=== PATIENT | female | born 1965 | race Caucasian/White ===

== ENCOUNTER → 2017-07-17 11:33 | Outpatient (CLI) | payer OTHER, SELFPAY ==
[2017-07-17 12:54] LABS: Hematocrit 41.1 % (37-47); Hemoglobin 13.5 g/dl (12.0-15.0); Mean Corp Hgb Conc 32.8 g/gl (32-36); Mean Corpuscular Hgb 29.9 pg (27.0-32.0); Mean Corpuscular Volume 91.1 fL (81-99); Mean Platelet Vol. 10.4 fl (6.2-12.0); Platelet Count 315 K/mm3 (150-450); RBC Distribution Width CV 13.7 % (11.6-14.6); RBC Distribution Width SD 45.1 fl (35.1-43.9); Red Blood Count 4.51 M/mm3 (4.2-5.4); White Blood Count 7.5 K/mm3 (4.4-11.0)
[2017-07-17 12:57] LABS: Scan Indicated on CBC? Y/N NO
[2017-07-17 13:20] LABS: Estradiol 96.8 pg/mL; Follicle Stimulating Hormone 26.8 mIU/mL; Free T3 2.8 pg/mL (2.18-3.98); Hemoglobin A1c 5.7 % (4.2-6.3); T4 Free Direct 0.99 ng/dL (0.76-1.46); Thyroid Stim Hormone (TSH) 2.13 uIU/mL (0.358-3.74)
[2017-07-17 13:21] LABS: Progesterone Level 0.17 ng/mL (See Comment)
[2017-07-19 15:03] LABS: HPV Reflexed? NOT INDICATED
== END ==
PROVIDERS: Visit Provider Obstetrics & Gynecology
DX: Z12.4 Encounter for screening for malignant neoplasm of cervix (principal); N92.6 Irregular menstruation, unspecified
CPT/HCPCS: 36415; 82670; 83001; 83036; 84144; 84403; 84439; 84443; 84481; 85027; 88175; G0145

== ENCOUNTER → 2017-08-09 13:05 | Outpatient (CLI) | payer OTHER, SELFPAY ==
--- NOTE | 2017-08-09 13:08 | HPBI_ITS ---
MAMMOGRAPHY - BILATERAL SCREENING REASON FOR EXAM: Female, 52 years old. Routine annual screening examination. PERTINENT HISTORY: Aunt with breast cancer. TECHNIQUE: Digital bilateral breast neema (3D mammographic acquisition) in the CC and MLO projections. 2-D mediolateral oblique (MLO) and craniocaudad (CC) views of both breasts were obtained. CAD: Full Field Digital Mammography with Computer Added Detection was performed. COMPARISON: Comparison is made with prior study dated July 12, 2015 and October 25, 2010. FINDINGS: Breast Composition: The breasts are heterogeneously dense, which may obscure small masses. There are no dominant masses or suspicious calcifications. A tissue clip marker from prior stereotactic biopsy seen in the anterior upper lateral portion of the left breast. No other significant abnormalities are identified. There has been no significant change since the prior study. HPBI/SCREENING MAMM (CAD), BILAT IMPRESSION: Stable bilateral screening mammogram. Yearly follow-up mammogram recommended. (A) ASSESSMENT CATEGORY: BIRADS Category 2: Benign. A letter regarding these results will be sent to the patient by the facility within 30 days. Approximately 10% of breast cancers are not detected by mammography. A normal mammogram should not delay biopsy of a clinically suspicious abnormality. [id number] Electronically Signed: Jason Lucero MD at 14:30 EDT Tel [phone], Service support ,
== END ==
PROVIDERS: Family Provider Family Medicine; PCP Family Medicine; Visit Provider Obstetrics & Gynecology
DX: Z12.31 Encounter for screening mammogram for malignant neoplasm of breast (principal)
CPT/HCPCS: 77063; 77067

== ENCOUNTER → 2017-08-12 09:17 | Outpatient (CLI) | payer OTHER, SELFPAY ==
--- NOTE | 2017-08-12 09:18 | RAD_ITS ---
STUDY: X-RAY - ESOPHAGUS (BARIUM SWALLOW) WITH FLUOROSCOPY REASON FOR EXAM: Female, 52 years old. Dysphagia. Choking episodes. TECHNIQUE: 6 view(s) of the esophagus were obtained following swallowing of barium. FLUOROSCOPY TIME (if supplied): (0:40) minutes/seconds COMPARISON: None. FINDINGS: There is no demonstrated esophageal foreign body. There is no demonstrated stricture or mucosal abnormality. Normal gastroesophageal junction, without a demonstrated hiatal hernia. The patient ingested a 12 mm tablet of barium without any difficulty. Normal visualized aortic arch and descending thoracic aorta. Normal visualized pulmonary parenchyma. Levoscoliosis of the thoracic spine and dextroscoliosis of the lumbar spine. RAD/Esophagus Only IMPRESSION: Normal plain film x-ray examination (barium swallow) of the esophagus. Electronically Signed: Jason Lucero MD at 10:31 EDT Tel [phone], Service support ,
== END ==
PROVIDERS: Family Provider Family Medicine; PCP Family Medicine; Visit Provider Otolaryngology
DX: R13.10 Dysphagia, unspecified (principal)
CPT/HCPCS: 74220

== ENCOUNTER → 2018-09-24 12:33 | Outpatient (CLI) | payer OTHER, SELFPAY ==
--- NOTE | 2018-09-24 12:41 | STE_ITS ---
Reason For Study: Chest Pain Stress Results Protocol: Julian Protocol Maximum Predicted HR: 169 bpm Target HR: 144 bpm % Maximum Predicted HR: 104 % DurationHeart Rate Stage (mm:ss) (bpm) BP Comment Baseline 65 104/60No Chest Pain Julian Protocol Stage I 3:00 121 110/60No Chest Pain Julian Protocol Stage II 3:00 151 136/74No Chest Pain Julian Protocol Stage III 3:00 176 150/72No Chest Pain; Mild to Moderate Dyspnea Recovery 96 104/60No Chest Pain Stress Duration: 9:00 mm:ss Maximum Stress HR: 176 bpm METS: 10 Baseline Echocardiogram Findings The estimated ejection fraction is 65 %. Stress Echo Wall motion Data Resting WM Intermediate WM Stress WM Resting Wall Motion Wall Motion Stress No regional wall motion No regional wall motion abnormalities noted. abnormalities noted. EKG Data The baseline ECG displays normal sinus rhythm. The patient exercised according to the regular Julian protocol for a total duration of 9:00. The maximum heart rate attained was 179 beats per minute. This was 105% of maximum predicted heart rate. The patient exercised into stage 4 of the Julian protocol. At peak exercise, upsloping ST changes only were noted, which did not meet the criteria for ischemia. No clinical angina was noted. No arrhythmias noted. Interpretation Summary The estimated ejection fraction is 65 %. Normal, adequate, treadmill echocardiogram. Negative for ischemia by EKG and echocardiographic criteria. No anginal symptoms noted. No arrhythmias noted. Appropriate blood pressure response to exercise. Average exercise capacity for age. Test terminated due to dyspnea. Final LVEF is 75%. No complications. Ordering Physician: Jose Torres Referring Physician: Eugenio Davis Performed By: Leti Nieto, ROS, RVT
== END ==
PROVIDERS: Family Provider Family Medicine; PCP Family Medicine; Referring Provider Family Medicine; Visit Provider Family Medicine
DX: R07.89 Other chest pain (principal)
CPT/HCPCS: 93017; 93350

== ENCOUNTER → 2018-11-12 11:30 | Outpatient (CLI) | payer OTHER, SELFPAY ==
[2018-11-12 14:08] LABS: Hemoglobin A1c 5.5 % (4.2-6.3)
[2018-11-12 14:11] LABS: Estradiol 23.2 pg/mL; Follicle Stimulating Hormone 57.1 mIU/mL; Free T3 2.4 pg/mL (2.18-3.98); T4 Free Direct 0.98 ng/dL (0.76-1.46); Thyroid Stim Hormone (TSH) 1.51 uIU/mL (0.358-3.74)
[2018-11-12 14:13] LABS: Progesterone Level 0.15 ng/mL (See Comment)
[2018-11-20 15:57] LABS: HPV Reflexed? NOT INDICATED
== END ==
PROVIDERS: Visit Provider Obstetrics & Gynecology
DX: Z12.4 Encounter for screening for malignant neoplasm of cervix (principal); N92.6 Irregular menstruation, unspecified
CPT/HCPCS: 36415; 82670; 83001; 83036; 84144; 84403; 84439; 84443; 84481; 88175; G0145

== ENCOUNTER → 2018-11-26 15:23 | Outpatient (CLI) | payer OTHER, SELFPAY ==
--- NOTE | 2018-11-26 15:25 | BI_ITS ---
MAMMOGRAPHY - BILATERAL SCREENING REASON FOR EXAM: Female, 53 years old. Routine annual screening examination. PERTINENT HISTORY: Aunt with breast cancer. Remote left stereotactic breast biopsy. TECHNIQUE: Digital bilateral breast danica (3D mammographic acquisition) in the CC and MLO projections. 2-D mediolateral oblique (MLO) and craniocaudad (CC) views of both breasts were obtained. CAD: Full Field Digital Mammography with Computer Added Detection was performed. COMPARISON: Comparison is made with prior study dated August 09, 2017 and July 12, 2015. FINDINGS: Breast Composition: The breasts are heterogeneously dense, which may obscure small masses. There are no dominant masses or suspicious calcifications. A tissue clip marker is once again seen in the upper lateral portion of the left breast. No other significant abnormalities are identified. There has been no significant change since the prior study. BI/SCREEN MAMM (CAD) W/DANICA BILAT IMPRESSION: Stable bilateral screening mammogram. Yearly follow-up mammogram recommended. (A) ASSESSMENT CATEGORY: BIRADS Category 1: Negative. A letter regarding these results will be sent to the patient by the facility within 30 days. Approximately 10% of breast cancers are not detected by mammography. A normal mammogram should not delay biopsy of a clinically suspicious abnormality. [id number] Electronically Signed: Jason Lucero, at 8:49 EDT , Service support ,
== END ==
PROVIDERS: Referring Provider Obstetrics & Gynecology; Visit Provider Obstetrics & Gynecology
DX: Z12.31 Encounter for screening mammogram for malignant neoplasm of breast (principal)
CPT/HCPCS: 77063; 77067

== ENCOUNTER → 2018-12-24 10:11 | Outpatient (CLI) | payer OTHER, SELFPAY ==
--- NOTE | 2018-12-24 10:20 | US_ITS ---
STUDY: ULTRASOUND TRANSVAGINAL CLINICAL: Female, 53 years old. Irregular menstrual cycles TECHNIQUE: Transvaginal COMPARISON: None. FINDINGS: Normal uterine size measuring 8.9 x 6.2 x 3.5 cm in maximal craniocaudal dimension. 1.2 cm hypoechoic mass in left side of the uterus consistent with an intramural fibroid.. Normal endometrial thickness measuring 4 mm. There are no endometrial masses, and there is no fluid in the endometrial cavity. Normal uterine cervix. Normal right ovary, measuring 2.2 x 1.8 x 1.4 cm. There are multiple follicles without a dominant cyst. Normal left ovary, measuring 2.8 x 2.4 x 1.7 cm. There are multiple follicles without a dominant cyst. There is no free fluid in the pelvis. Polycystic ovary disease: No. US/Pelvic (Non ) IMPRESSION: 1.2 cm fibroid in the left side of body the uterus. Electronically Signed: Anuel Benítez MD at 12:44 EDT Tel , Service support ,
--- NOTE | 2018-12-24 10:53 | US_ITS ---
STUDY: ULTRASOUND TRANSVAGINAL CLINICAL: Female, 53 years old. Irregular menstrual cycles TECHNIQUE: Transvaginal COMPARISON: None. FINDINGS: Normal uterine size measuring 8.9 x 6.2 x 3.5 cm in maximal craniocaudal dimension. 1.2 cm hypoechoic mass in left side of the uterus consistent with an intramural fibroid.. Normal endometrial thickness measuring 4 mm. There are no endometrial masses, and there is no fluid in the endometrial cavity. Normal uterine cervix. Normal right ovary, measuring 2.2 x 1.8 x 1.4 cm. There are multiple follicles without a dominant cyst. Normal left ovary, measuring 2.8 x 2.4 x 1.7 cm. There are multiple follicles without a dominant cyst. There is no free fluid in the pelvis. Polycystic ovary disease: No. US/Transvaginal Non- IMPRESSION: 1.2 cm fibroid in the left side of body the uterus. Electronically Signed: Anuel Benítez MD at 12:44 EDT Tel , Service support ,
== END ==
PROVIDERS: Referring Provider Obstetrics & Gynecology; Visit Provider Obstetrics & Gynecology
DX: N93.8 Other specified abnormal uterine and vaginal bleeding (principal)
CPT/HCPCS: 76830; 76856; 93976

== ENCOUNTER → 2020-02-02 | Outpatient (CLI) | payer OTHER, SELFPAY ==
[2020-02-05 15:40] LABS: HPV APTIMA, High Risk Negative (Negative)
[2020-02-05 15:41] LABS: HPV Reflexed? YES, CHARGE PATIENT
== END | disposition home or self-care (01) ==
LOC: LABSPEC 15:32
PROVIDERS: Visit Provider Student in an Organized Health Care Education/Training Program
DX: Z12.4 Encounter for screening for malignant neoplasm of cervix (principal)
CPT/HCPCS: 87624; 88175; G0145

== ENCOUNTER → 2020-03-24 14:46 | Outpatient (CLI) | payer OTHER, SELFPAY ==
--- NOTE | 2020-03-24 14:48 | BI_ITS ---
MAMMOGRAPHY - BILATERAL SCREENING REASON FOR EXAM: Female, 54 years old. Routine annual screening examination. PERTINENT HISTORY: Aunt with breast cancer. Remote left stereotactic breast biopsy. TECHNIQUE: Digital bilateral breast danica (3D mammographic acquisition) in the CC and MLO projections. 2-D mediolateral oblique (MLO) and craniocaudad (CC) views of both breasts were obtained. CAD: Full Field Digital Mammography with Computer Added Detection was performed. COMPARISON: Comparison is made with prior study dated 11/26/2018 and 08/09/2017. FINDINGS: Breast Composition: The breasts are heterogeneously dense, which may obscure small masses. There are no dominant masses or suspicious calcifications. A tissue clip marker is once again seen in the upper lateral aspect of the left breast. Stable benign appearing bilateral axillary lymph nodes. No other significant abnormalities are identified. There has been no significant change since the prior study. BI/SCREEN MAMM (CAD) W/DANICA BILAT IMPRESSION: Stable bilateral screening mammogram. Yearly follow-up mammogram recommended. (A) ASSESSMENT CATEGORY: BIRADS Category 2: Benign. A letter regarding these results will be sent to the patient by the facility within 30 days. Approximately 10% of breast cancers are not detected by mammography. A normal mammogram should not delay biopsy of a clinically suspicious abnormality. [id number] Electronically Signed: Jason Lucero, at 8:45 EDT , Service support ,
== END ==
PROVIDERS: Referring Provider Student in an Organized Health Care Education/Training Program; Visit Provider Student in an Organized Health Care Education/Training Program
DX: Z12.31 Encounter for screening mammogram for malignant neoplasm of breast (principal)
CPT/HCPCS: 77063; 77067

== ENCOUNTER 2020-08-11 12:24 | Outpatient (RCR) | payer OTHER, SELFPAY ==
[2020-08-11] MEDS: COVID-19 VACC, MRNA(PFIZER)/PF 30 MCG/0.3 ML SYRINGE IM (09:43)
[2020-09-01] MEDS: COVID-19 VACC, MRNA(PFIZER)/PF 30 MCG/0.3 ML SYRINGE IM (09:23)
== END 2020-08-11 23:59 ==
LOC: IMMUN 12:24
PROVIDERS: PCP Family Medicine; Visit Provider Family Medicine
DX: Z23 Encounter for immunization (principal)
CPT/HCPCS: 0001A; 0002A; 91300

== ENCOUNTER → 2021-01-10 14:44 | Outpatient (CLI) | payer OTHER, SELFPAY ==
[2021-01-10 14:49] LABS: Bacteria 0 SEEN /hpf (None Seen); Mucous, Urine 0 SEEN /hpf (<or=2+); Squamous Epithelial Cells - UA 0 SEEN /hpf (5-10); White Blood Cells 0 SEEN /hpf (0-5)
[2021-01-10 18:09] LABS: Color, Urine Straw (Yellow); Glucose, Dipstick Normal (Normal); Ketone-Dipstick Negative (Negative); Leukocyte Esterase-Dipstick 25 /ul (Negative); Nitrite-Dipstick Negative (Negative); Occult Blood-Urine 250 /ul (Negative); Protein-Dipstick Negative (Negative); Urine Bilirubin Dipstick Negative (Negative); Urine Clarity Clear (Clear); Urine Urobilinogen Normal (Normal); Urine pH 6.5 (5.0 - 8.0)
[2021-01-10 18:18] LABS: Red Blood Cells-Urine 0-5 SEEN /hpf (0-5)
[2021-01-10 18:33] LABS: AST(SGOT) 15 U/L (15-37); Alanine Aminotransfer ALT/SGPT 23 U/L (13-56); Albumin, Serum 3.9 g/dL (3.2-5.0); Alkaline Phosphatase 80 U/L (45-117); Anion Gap 5 (5-15); BUN 16 mg/dL (7-18); BUN/Creat Ratio 13.7 RATIO (10-20); Calcium,Total 9.6 mg/dL (8.5-10.1); Chloride 104 mmol/L (98-107); Cholesterol 197 mg/dL (200); Creatinine, Serum 1.17 mg/dL (0.55-1.02); EST Glomerular Filtration Rate 51 mL/min (>60); Est Glom Filt Rate - Afr Amer 62 mL/min (>60); Globulin 4.1 g/dL (2.2-4.2); Glucose 86 mg/dL (74-106); High Density Lipoprotein 60 mg/dL; Potassium 3.8 mmol/L (3.5-5.1); Sodium Level 139 mmol/L (136-145); Triglycerides 79 mg/dL; Very Low Density Lipoprotein 16 mg/dL (5-40)
== END ==
PROVIDERS: PCP Family Medicine; Referring Provider Family Medicine; Visit Provider Family Medicine
DX: E66.3 Overweight (principal); N02.8 Recurrent and persistent hematuria with other morphologic changes
CPT/HCPCS: 36415; 80053; 80061; 81001

== ENCOUNTER 2021-06-08 11:52 | Outpatient (CLI) | payer OTHER, SELFPAY ==
[2021-06-08 15:22] LABS: Hemoglobin 12.6 g/dL (12.0-15.0); Mean Corp Hgb Conc 31.5 g/dL (32-36); Mean Corpuscular Hgb 28.6 pg (27.0-32.0); Mean Corpuscular Volume 90.7 fL (81-99); Mean Platelet Vol. 10.4 fl (6.2-12.0); Platelet Count 349 K/mm3 (150-450); RBC Distribution Width CV 13.7 % (11.6-14.6); RBC Distribution Width SD 45.9 fl (35.1-43.9); Red Blood Count 4.41 M/mm3 (4.2-5.4); White Blood Count 6.2 K/mm3 (4.4-11.0)
[2021-06-08 15:41] LABS: Albumin, Serum 3.8 g/dL (3.2-5.0); BUN 13 mg/dL (7-18); BUN/Creat Ratio 12.3 RATIO (10-20); Calcium,Total 9.1 mg/dL (8.5-10.1); Chloride 104 mmol/L (98-107); Creatinine, Serum 1.06 mg/dL (0.55-1.02); EST Glomerular Filtration Rate 57 mL/min (>60); Est Glom Filt Rate - Afr Amer 69 mL/min (>60); Glucose 89 mg/dL (74-106); Phosphorus 2.6 mg/dL (2.5-4.9); Potassium 3.7 mmol/L (3.5-5.1); Sodium Level 140 mmol/L (136-145)
[2021-06-08 15:52] LABS: Creatinine, Urine (random) < 13.00 mg/dL (NO RANGE EST.); Microalbumin,Random Urine < 5.0 mg/L (NO RANGE EST.); Protein, Urine (Random) < 6.0 mg/dL (<11.9)
[2021-06-12 14:28] LABS: HPV APTIMA, High Risk Negative (Negative)
== END 2021-06-08 23:59 | disposition short-term general hospital (02) ==
PROVIDERS: Referring Provider Internal Medicine Nephrology; Visit Provider Internal Medicine Nephrology
DX: N02.8 Recurrent and persistent hematuria with other morphologic changes (principal); Z12.4 Encounter for screening for malignant neoplasm of cervix
CPT/HCPCS: 36415; 80069; 82043; 82570; 84156; 85027; 87624; 88175; G0145

== ENCOUNTER 2021-06-20 08:58 | Outpatient (CLI) | payer OTHER, SELFPAY ==
--- NOTE | 2021-06-20 09:00 | BI_ITS ---
MAMMOGRAPHY - BILATERAL DIAGNOSTIC REASON FOR EXAM: Female, 56 years old. Left axillary pain and swelling. Recent Covid vaccination. PERTINENT HISTORY: Remote left stereotactic breast biopsy. TECHNIQUE: Digital bilateral breast neema (3D mammographic acquisition) in the CC and MLO projections. 2-D mediolateral oblique (MLO) and craniocaudad (CC) views of both breasts were obtained. CAD: Full Field Digital Mammography with Computer Added Detection was performed. COMPARISON: Comparison is made with prior study dated 03/24/2020 and 11/26/2018. FINDINGS: Breast Composition: The breasts are heterogeneously dense, which may obscure small masses. There are no dominant masses or suspicious calcifications. A tissue clip marker is seen in the upper deep lateral aspect of the left breast in keeping with prior biopsy. No other significant abnormalities are identified. There has been no significant change since the prior study. BI/DIAG MAMM W/CAD, BILAT IMPRESSION: Stable bilateral diagnostic mammogram. With the patient''s history of pain in the axillary region of the left breast, correlation with ultrasound is recommended. ASSESSMENT CATEGORY: BIRADS Category 0: Incomplete. Need additional imaging evaluation. A letter regarding these results will be sent to the patient by the facility within 30 days. Approximately 10% of breast cancers are not detected by mammography. A normal mammogram should not delay biopsy of a clinically suspicious abnormality. Electronically Signed: Jason Lucero MD at 10:11 EST , Service support ,
--- NOTE | 2021-06-20 09:05 | BD_ITS ---
STUDY: DUAL ENERGY X-RAY ABSORPTIOMETRY / DXA REASON FOR EXAM: Female, 56 years old. M85.89 TECHNIQUE: Bone Mineral Density (BMD) measurements of lumbar spine and bilateral hips were obtained. COMPARISON: None. FINDINGS: Lumbar Spine (L1-L4): g/cm2 (0.934) / T-score (-1.1) / Z-score (-0.1) Findings are suggestive of osteopenia with a low fracture risk. Left Femur Total: g/cm2 (0.990) / T-score (0.4) / Z-score (1.0) Left Femoral Neck: g/cm2 (0.762) / T-score (-0.8) / Z-score (0.2) Right Femur Total: g/cm2 (1.030) / T-score (0.7) / Z-score (1.4) Right Femoral Neck: g/cm2 (0.888) / T-score (0.3) / Z-score (1.4) BD/Dexa Bone Density Study IMPRESSION: The patient is considered osteopenic as outlined below according to World Jose Organization (WHO) criteria with a low fracture risk. Reference Information: The T-score is the number of standard deviations above or below the standard which is normal for young adults at their peak bone mineral density. The World Health Organization (WHO) interprets the T-scores as follows: Above -1 Normal bone density Between -1 and -2.5 Osteopenia Equal to / or below -2.5 Osteoporosis As a practical clinical guideline, osteopenia may be graded as follows: Mild -1 through -1.5 Moderate -1.6 through -2.0 Severe -2.1 through -2.4 The Z-score is the number of standard deviations above or below age-matched controls. A Z-score of less than -1.5 would be considered abnormal. References: 1. NIH Osteoporosis and Related Bone Diseases www osteo.org 2. International Society for Clinical Densitometry www iscd.org 3. National Osteoporosis Foundation www nof.org Electronically Signed: Jason Lucero MD at 9:48 EST , Service support ,
--- NOTE | 2021-06-20 09:43 | US_ITS ---
STUDY: ULTRASOUND BREAST - LEFT REASON FOR EXAM: Female, 56 years old. Pain and swelling along the left axillary region. TECHNIQUE: Axial and longitudinal images of the LEFT breast were performed with a high resolution ultrasound transducer. # OF IMAGES: 50 COMPARISON: Comparison is made with prior mammogram done earlier in the day. FINDINGS: LEFT Breast: The axillary region was examined by ultrasound. There is a 1 cm x 0.6 x 0.5 cm benign-appearing lymph node. US/Breast Limited Unilateral IMPRESSION: 1 cm x 0.6 cm x 0.5 cm benign appearing left axillary lymph node. ASSESSMENT CATEGORY: BIRADS Category 2: Benign. A letter regarding these results will be sent to the patient by the facility within 30 days. Electronically Signed: Jason Lucero MD at 10:31 EST ,
== END 2021-06-20 23:59 | disposition short-term general hospital (02) ==
PROVIDERS: Referring Provider Student in an Organized Health Care Education/Training Program; Visit Provider Student in an Organized Health Care Education/Training Program
DX: N63.32 Unspecified lump in axillary tail of the left breast (principal); M85.89 Other specified disorders of bone density and structure, multiple sites
CPT/HCPCS: 76642; 77062; 77066; 77080; G0279

== ENCOUNTER → 2022-05-23 | Outpatient (CLI) | payer OTHER, SELFPAY ==
[2022-05-23 15:27] LABS: Anion Gap 5 (5-15); BUN 15 mg/dL (7-18); BUN/Creat Ratio 13.8 RATIO (10-20); Calcium,Total 9.3 mg/dL (8.5-10.1); Chloride 103 mmol/L (98-107); Creatinine, Serum 1.09 mg/dL (0.55-1.02); EST Glomerular Filtration Rate 55 mL/min (>60); Est Glom Filt Rate - Afr Amer 67 mL/min (>60); Glucose 93 mg/dL (74-106); Potassium 4.5 mmol/L (3.5-5.1); Sodium Level 139 mmol/L (136-145)
[2022-05-23 15:33] LABS: Protein, Urine (Random) < 6.0 mg/dL (<11.9); Protein:Creat Ratio 149 mg/g CRE (0-200)
== END | disposition home or self-care (01) ==
LOC: MTLAB 13:05
PROVIDERS: PCP Family Medicine; Referring Provider Internal Medicine Nephrology; Visit Provider Internal Medicine Nephrology
DX: N18.1 Chronic kidney disease, stage 1 (principal)
CPT/HCPCS: 36415; 80048; 82570; 84156

== ENCOUNTER → 2022-06-29 | Outpatient (CLI) | payer OTHER, SELFPAY ==
[2022-07-06 18:44] LABS: HPV APTIMA, High Risk Negative (Negative)
== END | disposition home or self-care (01) ==
LOC: LABSPEC 15:39
PROVIDERS: PCP Family Medicine; Visit Provider Student in an Organized Health Care Education/Training Program
DX: Z12.4 Encounter for screening for malignant neoplasm of cervix (principal)
CPT/HCPCS: 87624; 88175; G0145

== ENCOUNTER → 2022-07-11 | Outpatient (CLI) | payer OTHER, SELFPAY ==
--- NOTE | 2022-07-11 12:14 | BI_ITS ---
MAMMOGRAPHY - BILATERAL SCREENING REASON FOR EXAM: Female, 57 years old. Routine annual screening examination. PERTINENT HISTORY: Aunt with breast cancer. Remote left stereotactic breast biopsy. TECHNIQUE: Digital bilateral breast danica (3D mammographic acquisition) in the CC and MLO projections. 2-D mediolateral oblique (MLO) and craniocaudad (CC) views of both breasts were obtained. CAD: Full Field Digital Mammography with Computer Added Detection was performed. COMPARISON: Comparison is made with prior study dated 12/18/2021 and 03/24/2020. FINDINGS: Breast Composition: The breasts are heterogeneously dense, which may obscure small masses. There are no dominant masses or suspicious calcifications. A patient with markers was again seen in the upper lateral aspect of the left breast. Stable small bilateral benign-appearing axillary lymph nodes. No other significant abnormalities are identified. There has been no significant change since the prior study. BI/SCRN MAMM (CAD)W/DANICA BILAT IMPRESSION: Stable bilateral screening mammogram. Yearly follow-up mammogram recommended. (A) ASSESSMENT CATEGORY: BIRADS Category 2: Benign. A letter regarding these results will be sent to the patient by the facility within 30 days. Approximately 10% of breast cancers are not detected by mammography. A normal mammogram should not delay biopsy of a clinically suspicious abnormality. [id number] Electronically Signed: Jason Lucero MD at 13:57 EST ,
== END | disposition home or self-care (01) ==
LOC: OPBI 12:12
PROVIDERS: PCP Family Medicine; Referring Provider Student in an Organized Health Care Education/Training Program; Visit Provider Student in an Organized Health Care Education/Training Program
DX: Z12.31 Encounter for screening mammogram for malignant neoplasm of breast (principal)
CPT/HCPCS: 77063; 77067

== ENCOUNTER → 2023-03-06 | Outpatient (CLI) | payer OTHER, SELFPAY ==
[2023-03-10 11:07] LABS: Beef <0.10 kU/L (Class 0); Chocolate <0.10 kU/L (Class 0); Codfish <0.10 kU/L (Class 0); Corn <0.10 kU/L (Class 0); Egg, Whole <0.10 kU/L (Class 0); Milk (Cow) <0.10 kU/L (Class 0); Mussels <0.10 kU/L (Class 0); Peanut <0.10 kU/L (Class 0); Pork <0.10 kU/L (Class 0); Salmon <0.10 kU/L (Class 0); Shrimp <0.10 kU/L (Class 0); Soybean <0.10 kU/L (Class 0); Tuna <0.10 kU/L (Class 0); Wheat <0.10 kU/L (Class 0)
== END | disposition home or self-care (01) ==
LOC: MFPLAB 14:13
PROVIDERS: PCP Family Medicine; Visit Provider Family Medicine
DX: Z91.010 Allergy to peanuts (principal)
CPT/HCPCS: 36415; 86003; 86005

== ENCOUNTER → 2023-05-14 | Outpatient (CLI) | payer OTHER, SELFPAY ==
[2023-05-14 15:14] LABS: Hematocrit 41.3 % (37-47); Hemoglobin 12.7 g/dL (12.0-15.0); Mean Corp Hgb Conc 30.8 g/dL (32-36); Mean Corpuscular Hgb 28.4 pg (27.0-32.0); Mean Corpuscular Volume 92.4 fL (81-99); Mean Platelet Vol. 9.9 fl (6.2-12.0); Platelet Count 363 K/mm3 (150-450); RBC Distribution Width CV 13.7 % (11.6-14.6); RBC Distribution Width SD 46.8 fl (35.1-43.9); Red Blood Count 4.47 M/mm3 (4.2-5.4); White Blood Count 8.3 K/mm3 (4.4-11.0)
[2023-05-14 15:28] LABS: Protein, Urine (Random) < 6.0 mg/dL (<11.9)
[2023-05-14 15:45] LABS: Albumin, Serum 3.6 g/dL (3.2-5.0); BUN 24 mg/dL (7-18); Calcium,Total 9.8 mg/dL (8.5-10.1); Chloride 107 mmol/L (98-107); Creatinine, Serum 1.09 mg/dL (0.55-1.02); EST Glomerular Filtration Rate 55 mL/min (>60); Est Glom Filt Rate - Afr Amer 67 mL/min (>60); Glucose 112 mg/dL (74-106); Potassium 4.5 mmol/L (3.5-5.1); Sodium Level 143 mmol/L (136-145)
== END | disposition home or self-care (01) ==
LOC: MTLAB 13:18
PROVIDERS: PCP Family Medicine; Referring Provider Internal Medicine Nephrology; Visit Provider Internal Medicine Nephrology
DX: N18.31 Chronic kidney disease, stage 3a (principal)
CPT/HCPCS: 36415; 80069; 82306; 82570; 83970; 84156; 85027

== ENCOUNTER → 2023-08-29 | Outpatient (CLI) | payer OTHER, SELFPAY ==
--- NOTE | 2023-08-29 15:59 | BI_ITS ---
MAMMOGRAPHY - BILATERAL SCREENING REASON FOR EXAM: Female, 58 years old. Routine annual screening examination. PERTINENT HISTORY: Aunt with breast cancer. Remote left stereotactic breast biopsy. TECHNIQUE: Digital bilateral breast danica (3D mammographic acquisition) in the CC and MLO projections. 2-D mediolateral oblique (MLO) and craniocaudad (CC) views of both breasts were obtained. CAD: Full Field Digital Mammography with Computer Added Detection was performed. COMPARISON: Comparison is made with prior examination dated July 11, 2022 and June 20, 2021. FINDINGS: Breast Composition: The breasts are heterogeneously dense, which may obscure small masses. There are no dominant masses or suspicious calcifications. A tissue clip marker is seen in the upper lateral aspect of the left breast. No other significant abnormalities are identified. There has been no significant change since the prior study. BI/SCRN MAMM (CAD)W/DANICA BILAT IMPRESSION: Stable bilateral screening mammogram. Yearly follow-up mammogram recommended. (A) ASSESSMENT CATEGORY: BIRADS Category 2: Benign. A letter regarding these results will be sent to the patient by the facility within 30 days. Approximately 10% of breast cancers are not detected by mammography. A normal mammogram should not delay biopsy of a clinically suspicious abnormality. [id number] Electronically Signed: Jason Lucero MD at 8:19 EDT ,
== END | disposition home or self-care (01) ==
LOC: OPBI 15:58
PROVIDERS: PCP Family Medicine; Referring Provider Advanced Practice Midwife; Visit Provider Advanced Practice Midwife
DX: Z12.31 Encounter for screening mammogram for malignant neoplasm of breast (principal)
CPT/HCPCS: 77063; 77067

== ENCOUNTER 2023-10-25 15:30 | Outpatient (RCR) | payer OTHER, SELFPAY ==
--- NOTE | 2023-09-26 17:49 | HP.PTEVAL ---
Patient's Visit Information Visit Information Visit Information: CYNTHIA PRICE is a 58 year old F referred to Physical Therapy by Dr. Rick Carrasquillo, DO with a diagnosis of OSTEOARTHRITIS OF HIP ,CONGENITAL DISLOCATION OF HIP ,SCOLIOISIS. Date of Evaluation: 09/26/23 Physical Therapist: Kevin Amato, PT, Cert MDT, OCS Visit Plan Frequency: 2x /Week Duration: 4 Weeks Plan: PT INTERVENTIONS HIP ROM ,STRENGTHENING RLE ESPECIALLY HIP , FUNCTIONAL STRENGTHENING ,DLS ,AND LUMBAR ROM Subjective Subjective: This 58 y/o female presents to physical therapy with hip pain right side. Patient was born with congenital dislocated hip ,but started walking 2 years with limbing. Patient had hip surgery at 4 years old . Most recently pain started with walking and limping a lot. Pain has progressively worse summer 2022 but increased in fall . Seen Dr Carrasquillo did x-rays Mod DJD and lumbar x-rays DDD and scoliosis . Pain located anterior hip and groin and occasionally lumbar .Pain described ache occasional . Aggravating factors standing ,walking extended ,in car ,stairs descending. Pain affects sleeping . Alleviating factors nothing.Patient enjoys hiking . Patient condition affects QOL and function . Patient goals to decrease pain hike and daily function. SOCIAL: VOCATION: [place] Pain Right Hip: Pain Intensity (Out of 10): 4 Pain Intensity Range: N/A Objective Objective: POSTURE: mild forward posture ,asymmetries pelvis right higher , leg length discrepancy GAIT: reciprocal pattern slight decrease stance time NEURO: denies paresthesia/tingling ,reflexes L3-4,L4-5,L5-S1 2/3 PALPATION: tender I T band AROM HIP: flexion 105 degrees ,hip abduction 40 degrees ,IR 20 degrees MMT: quads/hams 4/5 ,( peak force ) hip flexion 32.9 ,hip abduction 18.8 LUMBAR ROM: flexion min loss ,extension mod loss ,side glides mod loss Special Tests L/S Slump test left side: Negative L/S Slump test right side: Negative L/S Left Straight Leg Raise: Negative L/S Right Straight Leg Raise: Negative Lumbar Standing: Flexion - Mechanical Response: No effect Lumbar Standing: Flexion - Symptoms During Testing: No effect Lumbar Standing: Flexion - Symptoms After Testing: No effect Lumbar Standing: Extension - Mechanical Response: No effect Lumbar Standing: Extension - Symptoms During Testing: No effect Lumbar Standing: Extension - Symptoms After Testing: No effect Lumbar Standing: Right Side Glides - Mechanical Response: No effect Lumbar Standing: Right Side [place] - Symptoms During Testing: No effect Lumbar Standing: Right Side [place] - Symptoms After Testing: No effect Lumbar Standing: Left Side [place] - Mechanical Response: No effect Lumbar Standing: Left Side [place] - Symptoms During Testing: No effect Lumbar Standing: Left Side [place] - Symptoms After Testing: No effect R Hip Scour: Positive R Hip Quadrant - Intraarticular Pathology: Negative R Hip Trendelenberg - Glut Medius: Negative R Hip Valentin - IT Band: Negative Balance/Special Test Scores Lower Extremity Functional Score: 41 Goals Goal 1:: Patient to be I with HEP for hip. Goal Time Frame: 4-6 Weeks Goal 2:: Patient to demonstrate 60 % improvement with less pain and improved function with gait Goal Time Frame: 4-6 Weeks Goal 3:: Patient to improve LFES score by 5-10 points to improve QOL and function. Goal Time Frame: 4-6 Weeks Goal 4:: Patient to peak force of hip by 10-15# to improve function with extended walking Goal Time Frame: 4-6 Weeks Goal 5:: Patient to improve ability to walk and extended standing in order to hike on uneven surfaces Goal Time Frame: 4-6 Weeks Rehabilitation Potential Physical Therapy Diagnosis: This patient has left hip pain from DJD with h/o hip surgery young child with current impairments with weakness of hip ,pain with walking stairs and decrease ROM thus benefit from skilled PT Rehabilitation Potential: Good Anticipated Interventions Patient/Client Instruction: Educate patient on: Condition and Plan of Care For the Purpose of:: To decrease pain, To increase ROM, To improve muscle performance and motor function, To improve ability to perform ADL's, To increase tolerance to activity/condition/position, To improve ability of physical actions for home/community/work/leisure, To improve gait and locomotor functions, To improve health of tissue, To decrease soft tissue restriction, To increase flexibility/ROM and To improve endurance Therapeutic Exercise to Include: Endurance training, Balance training, Body mechanics, Postural training, Flexibilty training and Dynamic Lumbar Stabilization Comment: HIP For the Purpose of:: To decrease pain, To increase ROM, To improve muscle performance and motor function, To improve ability to perform ADL's, To increase tolerance to activity/condition/position, To improve ability of physical actions for home/community/work/leisure, To improve health of tissue, To decrease soft tissue restriction, To increase flexibility/ROM, To improve endurance, To improve balance, To reduce risk of recurrence and To improve tolerance to ADL's Text: Thank you for the opportunity to evaluate your patient. For Medicare and Medicare HMO plans, please review the plan of care and approve it. It will need to be FAXED BACK to us at [phone] for Medicare purposes. For Medicare only, by signing this I certify the plan of care. Please let me know if there are questions or concerns regarding this plan of care. Physician Signature: Date:
--- NOTE | 2023-10-25 16:16 | HP.PTDCSUM ---
Discharge Summary D/C summary: It has been my pleasure to treat CYNTHIA PRICE referred by Dr. Rick Carrasquillo DO, with the diagnosis of OSTEOARTHRITIS OF HIP ,CONGENITAL DISLOCATION OF HIP ,SCOLIOISIS for a total of 8 visit(s). Discharge Date: 10/25/23 Please see the following information for a summary of their discharge status. Subjective Subjective: Not in constant pain ,but pain is stabbing pain Pain Right Hip: Pain Intensity (Out of 10): 1 Overall Improvement % Improvement: 80 Objective Objective/Function: POSTURE: mild forward posture ,asymmetries pelvis right higher , leg length discrepancy GAIT: reciprocal pattern NEURO: denies paresthesia/tingling ,reflexes L3-4,L4-5,L5-S1 2/3 PALPATION: [place]OM HIP: flexion 115 degrees ,hip abduction 40 degrees ,IR 20 degrees MMT: quads/hams 4/5 ,( peak force ) hip flexion 42.9 ,hip abduction 29.8 LUMBAR ROM: flexion min loss ,extension mod loss ,side glides mod loss Special Tests L/S Slump test left side: Negative Goals Goal 1:: Patient to be I with HEP for hip. Goal Progress: Goal Met Goal 2:: Patient to demonstrate 60 % improvement with less pain and improved function with gait Goal Progress: Goal Met Goal 3:: Patient to improve LFES score by 5-10 points to improve QOL and function. Goal Progress: Goal Met Goal 4:: Patient to peak force of hip by 10-15# to improve function with extended walking Goal Progress: Goal Met Goal 5:: Patient to improve ability to walk and extended standing in order to hike on uneven surfaces Goal Progress: Goal Met Plan Plan: D/C D/C Information Discharge Comments: HEP MET GOALS d/c sentence: If there are questions or concerns regarding this patient's physical therapy, please feel free to call me at [phone]. Thank you for the referral of this patient. Sincerely, Kevin Amato, PT, Cert MDT, OCS Balance/Gait/Functional tests Balance/Special Test Scores Lower Extremity Functional Score: 66 Improvement % Improvement: 80
== END 2023-10-25 19:00 | disposition home or self-care (01) ==
LOC: PT 15:30
PROVIDERS: PCP Family Medicine; Referring Provider Orthopaedic Surgery; Visit Provider Orthopaedic Surgery
DX: M41.9 Scoliosis, unspecified (principal); M16.9 Osteoarthritis of hip, unspecified; Q65.2 Congenital dislocation of hip, unspecified
CPT/HCPCS: 97110; 97161

== ENCOUNTER → 2024-01-03 | Outpatient (CLI) | payer OTHER, SELFPAY ==
--- NOTE | 2024-01-03 11:19 | RAD_ITS ---
STUDY: X-RAY - RIGHT SHOULDER REASON FOR EXAM: Female, 58 years old. PAIN TECHNIQUE: 4 views of the right shoulder. COMPARISON: None. FINDINGS: There is mild degenerative arthrosis of the glenohumeral articulation. There is mild hypertrophic acromioclavicular arthrosis. Normal acromion. Normal humeral head and visualized proximal humerus. The soft tissue structures are unremarkable. There is no demonstrated fracture. Normal visualized pulmonary apex. RAD/Shoulder min 2 Views IMPRESSION: Mild glenohumeral arthrosis and mild hypertrophic acromioclavicular arthrosis. No demonstrated fracture. Electronically Signed: Jasvir Guzman MD at 16:09 EDT ,
== END | disposition home or self-care (01) ==
LOC: RAD 11:15
PROVIDERS: PCP Family Medicine; Referring Provider Anesthesiology; Visit Provider Anesthesiology
DX: M25.511 Pain in right shoulder (principal)
CPT/HCPCS: 73030

== ENCOUNTER 2024-02-20 16:30 | Outpatient (RCR) | payer OTHER, SELFPAY ==
--- NOTE | 2024-01-30 17:19 | HP.PTEVAL ---
Patient's Visit Information Visit Information Visit Information: CYNTHIA PRICE is a 58 year old F referred to Physical Therapy by Dr. Prosper Trimble MD with a diagnosis of R shoulder pain. Date of Evaluation: 01/30/24 Physical Therapist: Adams Murphy, DPT, OCS, CSCS Visit Plan Frequency: 2x /Week Duration: 4-6 Weeks Plan: Appears to be impingement tendonitis subscap and supra. IE: scap cirles, supine stick flexion adn stick er 10x 2x/day and activitiy modification for impingement and posture Please treat with emphasis on activitiy modifcation, grade 1 manual g-h mobs, instruct and progress to HEP pec stretch, and RC and scap strength painfree, US may be use if needed.nonthermal. progress HEP to I Subjective Subjective: Went [place] this [place] and seeing Reba[facility] for injections in hip and knees and started using a walking stick. Thinks this may have bothered her R shoulder. Also had some pain prior but carries grandchild in that R shoulder. It is not completely comfortable at rest. It wakes her up at night when she rolls on it. had x rays and has some OA. Sleep is interrupted at night with rolling at night. 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 Able to do her job but can feel it lifting arm or holding out in front of her. Driving does not hurt. Pushing door closed in passenger seat hurts. No regular exercises for shoulder lately. Basic ADLs are getting done but pain with movement as in taking shirt off. No numbness or tingling during the day. Neck is fine. Pain r shoulder: Pain Intensity (Out of 10): 1 Pain Intensity Range: 1 and 7 Comment: washing back or lifting is worse Objective Objective: Walks and trasnfers I without evidence of Pain. Forward head , protrtacted scap posture is evident. Tender to palpation subscap and supraspinatus tendon on R shoulder. moderately. cervical AROM WFL and without pain or asymmetries today. B shoulder AROM WFL but R hurts at 90 and above worsening to 145. ext rotation 60 R and 75 L with pain on R side, IR to L4 R and painful elbow and wrsit aROM WFL B and no pain. strengvth er and IR 4- on R with pain, flexion and abduction and empty can are painful on R and strength all 4- vs 4 on L. elbow and wrist symmetrical strength at 4 B reflexes 1.3 bi and tri B sensation UE WNL to gross light touch. + HK and neer on R, - sulcus, - scour, - apprehension, - ext rotation lag test. Balance/Special Test Scores Quick DASH Score: 25.0000 Goals Goal 1:: Painfree at rest Goal Time Frame: 2 Weeks Goal 2:: Full aROM R shoulder without pain Goal Time Frame: 4-6 Weeks Goal 3:: Pt feel 80% better in overall pain at 1/10 at worst and manageable Goal Time Frame: 4-6 Weeks Goal 4:: get dressed without irritation to shoulder Goal Time Frame: 4-6 Weeks Goal 5:: quickdash score14 or better Goal Time Frame: 4-6 Weeks Rehabilitation Potential Physical Therapy Diagnosis: pain and weakness R shoulder likely impingement Rehabilitation Potential: Good Anticipated Interventions Patient/Client Instruction: Educate patient on: Condition and Plan of Care For the Purpose of:: To decrease pain, To increase ROM, To improve nutrient delivery to tissue, To improve muscle performance and motor function and To improve ability of physical actions for home/community/work/leisure Therapeutic Exercise to Include: Strength training, Postural training, Passive ROM, Active ROM and Scapular Strength/Stabilization For the Purpose of:: To decrease pain, To improve nutrient delivery to tissue, To improve muscle performance and motor function and To increase tolerance to activity/condition/position Manual Therapy Techniques to Include: Mobilization, Passive ROM and Soft tissue mobilization For the Purpose of:: To decrease pain, To increase ROM and To improve nutrient delivery to tissue Cryotherapy (ice pack, ice massage): Yes Ultrasound (thermal/non thermal): Yes (nonthemrmal) For the Purpose of:: To decrease pain and To decrease swelling/inflammation Text: Thank you for the opportunity to evaluate your patient. For Medicare and Medicare HMO plans, please review the plan of care and approve it. It will need to be FAXED BACK to us at [phone] for Medicare purposes. For Medicare only, by signing this I certify the plan of care. Please let me know if there are questions or concerns regarding this plan of care. Physician Signature: Date:
--- NOTE | 2024-02-20 17:16 | HP.PTDCSUM ---
Discharge Summary D/C summary: It has been my pleasure to treat CYNTHIA PRICE referred by Dr. Prosper Trimble MD, with the diagnosis of R shoulder pain for a total of 7 visit(s). Discharge Date: 02/20/24 Please see the following information for a summary of their discharge status. Subjective Subjective: Comfortable at rest for a while now. Sleeping OK now. Activities: Normal with modifications. Dressing OK. Doing well and ready to be on own with exercises. Pain r shoulder: Pain Intensity (Out of 10): 4 Overall Improvement % Improvement: 85 Objective Objective/Function: Full aROM R shoulder but slight scap compensation in elevation at end range and pain end flexion, er, ir which is transient. - drop arm, - ext rotation lag, - labral, slight + HK and neer all on R. strength is 4/5 er, ir without pain, 4- empty can with pain, 4- flexion with pain. overall much better abd willing to continue via HEP Goals Goal 1:: Painfree at rest Goal Progress: Goal Met Goal 2:: Full aROM R shoulder without pain Goal Progress: Progressing Goal 3:: Pt feel 80% better in overall pain at 1/10 at worst and manageable Goal Progress: Goal Met Goal 4:: get dressed without irritation to shoulder Goal Progress: Goal Met Goal 5:: quickdash score14 or better Goal Progress: Goal Met Plan Plan: d/c to HEP D/C Information Discharge Comments: To continue via HEP and contact doctor if worsens. d/c sentence: If there are questions or concerns regarding this patient's physical therapy, please feel free to call me at [phone]. Thank you for the referral of this patient. Sincerely, Adams Murphy, DPT, OCS, CSCS Balance/Gait/Functional tests Balance/Special Test Scores Quick DASH Score: 6.8175 Improvement % Improvement: 85
== END 2024-02-20 19:00 | disposition home or self-care (01) ==
LOC: PT 16:30
PROVIDERS: PCP Family Medicine; Referring Provider Anesthesiology; Visit Provider Anesthesiology
DX: M25.511 Pain in right shoulder (principal)
CPT/HCPCS: 97035; 97110; 97161; 97530

== ENCOUNTER → 2024-05-21 | Outpatient (CLI) | payer OTHER, SELFPAY ==
[2024-05-21 15:16] LABS: Color, Urine Yellow (Yellow); Glucose, Dipstick Normal (Normal); Ketone-Dipstick Negative (Negative); Leukocyte Esterase-Dipstick 25 /ul (Negative); Nitrite-Dipstick Negative (Negative); Occult Blood-Urine 250 /ul (Negative); Protein-Dipstick Negative (Negative); Urine Bilirubin Dipstick Negative (Negative); Urine Clarity Sl. Cloudy (Clear); Urine Urobilinogen Normal (Normal); Urine pH 6.5 (5.0 - 8.0)
[2024-05-21 15:44] LABS: Albumin, Serum 3.5 g/dL (3.2-5.0); BUN 21 mg/dL (7-18); BUN/Creat Ratio 22.2 RATIO (10-20); Calcium,Total 9.6 mg/dL (8.5-10.1); Chloride 104 mmol/L (98-107); Creatinine, Serum 0.95 mg/dL (0.55-1.02); EST Glomerular Filtration Rate 65 mL/min (>60); Est Glom Filt Rate - Afr Amer 78 mL/min (>60); Glucose 86 mg/dL (74-106); Phosphorus 3.7 mg/dL (2.5-4.9); Potassium 4.1 mmol/L (3.5-5.1); Sodium Level 138 mmol/L (136-145)
[2024-05-21 16:12] LABS: Protein, Urine (Random) 8.1 mg/dL (<11.9); Protein:Creat Ratio 182 mg/g CRE (0-200)
== END | disposition home or self-care (01) ==
LOC: MTLAB 11:36
PROVIDERS: PCP Family Medicine; Referring Provider Internal Medicine Nephrology; Visit Provider Internal Medicine Nephrology
DX: N18.31 Chronic kidney disease, stage 3a (principal); N02.B1 Recurrent and persistent immunoglobulin A nephropathy with glomerular lesion
CPT/HCPCS: 36415; 80069; 81002; 82570; 84156

== ENCOUNTER → 2024-09-02 | Outpatient (CLI) | payer OTHER, SELFPAY ==
--- NOTE | 2024-09-02 14:24 | BI_ITS ---
EXAM: SCRN MAMM (CAD)W/DANICA BILAT 09/02/2024 CLINICAL HISTORY: F, Age 59 y/o , SCREENING TECHNIQUE: Bilateral screening digital breast tomosynthesis with 2D and 3D images. Computer aided detection. COMPARISON: Prior exam(s) dated 08/29/2023, 07/11/2022. FINDINGS: TISSUE DENSITY: The breast tissue is heterogenously dense, which may obscure small masses. The mammogram demonstrates that the patient has dense breasts. Supplemental screening with whole breast ultrasound or MRI may be considered for further evaluation. Bilateral Breast Mammographic Findings: No significant masses, calcifications or other abnormalities are identified. BI/SCRN MAMM (CAD)W/DANICA BILAT IMPRESSION: Right Breast: BIRADS 1 NEGATIVE. Left Breast: BIRADS 1 NEGATIVE. OVERALL FINAL ASSESSMENT: BIRADS 1 NEGATIVE. RECOMMENDATION: Routine annual follow-up in 1 Year A letter with findings and recommendations will be mailed to the patient. Reading Location: [id number]
== END | disposition home or self-care (01) ==
LOC: OPBI 14:23
PROVIDERS: PCP Family Medicine; Referring Provider Advanced Practice Midwife; Visit Provider Advanced Practice Midwife
DX: Z12.31 Encounter for screening mammogram for malignant neoplasm of breast (principal)
CPT/HCPCS: 77063; 77067

== ENCOUNTER 2025-01-22 13:30 | Outpatient (RCR) | payer OTHER, SELFPAY ==
--- NOTE | 2024-11-02 10:43 | HP.PTEVAL_ITS ---
Patient's Visit Information Visit Information Visit Information: CYNTHIA PRICE is a 59 year old F referred to Physical Therapy by Dr. Santiago Morgan MD with a diagnosis of R KEYON 10/29/24. Date of Evaluation: 11/02/24 Physical Therapist: Abdifatah Morataya, PT, ATC Visit Plan Frequency: 2x /Week Duration: 6-8 weeks Plan: R LE stretching and strengthening, balance and proprio, core strengthening, nustep, gait training, stair negotiation, and HEP Subjective Subjective: DOS: 10/29/24. Pt notes she had a R TKA performed at that time. Pt reports she had a lateral approach performed. Pt notes she had a chronic Hx of R hip pain prior to having this surgery. Pt reports she has not been given any restrictions at this time. Pt reports she is in less pain than she thought, but she still is in a moderate amount of pain. Pt reports she has some tingling and numbness in her R ankle and foot. Pt reports she has sleep difficulty at this time secondary to pain. 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 Pt lives in a ranch style house, but has a finished basement that they spend a lot of time in. Pt notes she has 12 steps to get to her basement. Pt reports she was given a HEP at the hospital that she has been performing as ordered. 5/10 pain while sitting here at rest, 9/10 pain at worst (with normal ambulation) Pain R KEYON: Pain Intensity (Out of 10): 5 Pain Intensity Range: 9 Objective Objective: Neuro: B LE sensation is WNL to light touch Observation: Incision is still covered. No obvious signs of infection. MMT: L hip flex= 14, ext= 19, abd= 28 #F; R hip flex= 7, ext= 0, abd= 8 #F ROM: L hip flex= 85, ext= 0, abd= 45 degrees; R hip flex= 65, ext= -20, abd= 0 degrees Tu min, 3 sec sit to stand: 5 reps Balance/Special Test Scores WOMAC Total Score: 66 WOMAC Percentatge: 31.2500 Goals Goal 1:: Decrease R hip pain x 50% to aid with sleep Goal Time Frame: 6-8 Weeks Goal 2:: Increase R hip strength to equal 90% of L hip strength to aid with stair negotiation Goal Time Frame: 6-8 Weeks Goal 3:: Pt will perform the TUG in under 30 seconds to aid with mobility Goal Time Frame: 6-8 Weeks Goal 4:: Pt will perform 10 sit to stand transfers in 30 sec to aid with transfer efficiency Goal Time Frame: 6-8 Weeks Goal 5:: I with HEP Goal Time Frame: 6-8 Weeks Rehabilitation Potential Physical Therapy Diagnosis: Pt has R hip pain, weakness, and limited ROM secondary to R KEYON Rehabilitation Potential: Good Anticipated Interventions Patient/Client Instruction: Educate patient on: Condition and Plan of Care For the Purpose of:: To improve self management Therapeutic Exercise to Include: Strength training, Endurance training, Balance training, Flexibilty training, Gait and locomotor training and Dynamic Lumbar Stabilization For the Purpose of:: To decrease pain, To increase ROM and To improve muscle performance and motor function Text: Thank you for the opportunity to evaluate your patient. For Medicare and Medicare HMO plans, please review the plan of care and approve it. It will need to be FAXED BACK to us at [phone] for Medicare purposes. For Medicare only, by signing this I certify the plan of care. Please let me know if there are questions or concerns regarding this plan of care. Physician Signature: Date:
--- NOTE | 2024-12-07 11:34 | HP.PTREVAL ---
Re-Evaluation Intro: Dr. Santiago Morgan MD, It has been my pleasure to treat CYNTHIA PRICE over the last 9 visits for R KEYON 10/29/24. Please see the progress note below for an update on the physical therapy plan of care! Subjective Subjective: I have a lot of pain in my groin today. I might have walked too much this past week Objective Objective/Function: R hip pain 08/03 R hip MMT: flex= 17, ext= 28 #F R hip ROM: flex= 85, ext= 0 degrees TU.62 sec sit to stands: 13 reps in 30 sec Plan Plan Plan: Continue with strengthening at this time. Focus on restoring a more normalized gait pattern. Balance/Gait/Functional tests Balance/Special Test Scores WOMAC Total Score: 66 WOMAC Percentage: 31.2500 Goals Goals Goal 1:: Decrease R hip pain x 50% to aid with sleep Goal Time Frame: 6-8 Weeks Goal Progress: Progressing Goal 2:: Increase R hip strength to equal 90% of L hip strength to aid with stair negotiation Goal Time Frame: 6-8 Weeks Goal Progress: Goal Met Goal 3:: Pt will perform the TUG in under 30 seconds to aid with mobility Goal Time Frame: 6-8 Weeks Goal Progress: Goal Met Goal 4:: Pt will perform 10 sit to stand transfers in 30 sec to aid with transfer efficiency Goal Time Frame: 6-8 Weeks Goal Progress: Goal Met Goal 5:: I with HEP Goal Time Frame: 6-8 Weeks Goal Progress: Progressing Anticipated Interventions Anticipated Interventions Patient/Client Instruction: Educate patient on: Condition and Plan of Care For the Purpose of:: To improve self management Therapeutic Exercise to Include: Strength training, Endurance training, Balance training, Flexibilty training, Gait and locomotor training and Dynamic Lumbar Stabilization For the Purpose of:: To decrease pain, To increase ROM and To improve muscle performance and motor function Re-Evaluation Ending Re-evaluation ending: Please do not hesitate to contact me at [phone] by phone or if you have questions or concerns regarding this new plan of care! Sincerely, Abdifatah Morataya, PT, ATC
--- NOTE | 2025-01-22 14:37 | HP.PTDCSUM ---
Discharge Summary D/C summary: It has been my pleasure to treat CYNTHIA PRICE referred by Dr. Santiago Morgan MD, with the diagnosis of R KEYON 10/29/24 for a total of 19 visit(s). Discharge Date: Please see the following information for a summary of their discharge status. Subjective Subjective: Pt is ready for HEP Pain R KEYON: Pain Intensity (Out of 10): 2 Overall Improvement % Improvement: 75 Objective Objective/Function: Pt is now I with HEP Goals Goal 1:: Decrease R hip pain x 50% to aid with sleep Goal Progress: Progressing Goal 2:: Increase R hip strength to equal 90% of L hip strength to aid with stair negotiation Goal Progress: Goal Met Goal 3:: Pt will perform the TUG in under 30 seconds to aid with mobility Goal Progress: Goal Met Goal 4:: Pt will perform 10 sit to stand transfers in 30 sec to aid with transfer efficiency Goal Progress: Goal Met Goal 5:: I with HEP Goal Progress: Progressing Plan Plan: Discharge to HEP D/C Information d/c sentence: If there are questions or concerns regarding this patient's physical therapy, please feel free to call me at [phone]. Thank you for the referral of this patient. Sincerely, Abdifatah Morataya, PT, ATC Balance/Gait/Functional tests Balance/Special Test Scores WOMAC Total Score: 66 WOMAC Percentage: 31.2500 Improvement % Improvement: 75
== END 2025-01-22 14:42 | disposition home or self-care (01) ==
LOC: PT 13:30
PROVIDERS: PCP Family Medicine; Referring Provider Orthopaedic Surgery; Visit Provider Orthopaedic Surgery
DX: M16.11 Unilateral primary osteoarthritis, right hip (principal); N39.0 Urinary tract infection, site not specified; Z96.641 Presence of right artificial hip joint
CPT/HCPCS: 87086; 87088; 97110; 97116; 97161; 97530

== ENCOUNTER → 2025-04-28 | Outpatient (CLI) | payer OTHER, SELFPAY ==
[2025-04-28 18:06] LABS: AST(SGOT) 18 U/L (<=31); Alanine Aminotransfer ALT/SGPT 15 U/L (<=34); Albumin, Serum 4.2 g/dL (3.5-5.0); Alkaline Phosphatase 105 U/L (35-104); Bilirubin, Direct 0.10 mg/dL (0.00-0.30); Globulin 3.2 g/dL (2.2-4.2)
== END | disposition home or self-care (01) ==
LOC: MTLAB 15:47
PROVIDERS: PCP Family Medicine; Referring Provider Student in an Organized Health Care Education/Training Program; Visit Provider Student in an Organized Health Care Education/Training Program
DX: B35.1 Tinea unguium (principal)
CPT/HCPCS: 36415; 80076

== ENCOUNTER → 2025-05-24 | Outpatient (CLI) | payer OTHER, SELFPAY ==
--- OUTSIDE RECORDS SUMMARY | 2025-05-24 08:20 | XMS RPT_ITS | CCD ---
Author Organization [facility] Care Team Providers Care Buckle Coverer Name Role Phone PHYSICIAN, NONE Primary Care Unavailable ANGIE MTOA Admitting Unavailable ANGIE MOTA Attending Unavailable Unavailable Primary Care Provider UnavailSantiago Thompson Jr, MD Unavailable Unavailab Chase Kaye MD Unavailable Unavailable Jenny SALGADO, Chase Unavailable Unavailable Unavailable Primary Care Provider UnavailNEMO Srivastava Attending Unavailable Ellis Alford MD Primary Care Provider [phone] Valerie SALGADO, Dr. Comer Attending Provider Dr. Souleymane Padilla MD Referring Provider [phone] Nemo Lambert CNM Attending Provider Nemo Lambert CNM Referring Provider [facility], Provider Attending Unavailable Chase Alvarado Referring Unavailable Tom, Micha Primary Care Unavailable Cathy Collado Santiago V Referring Unavailabl e Tom, Micha Primary Care Unavailable Martin Isidro Attending Unavailable Tom, Micha Primary Care Unavailable Cathy Collado Santiago V Referring Unavailabl e Cathy Collado, Santiago V Attending Unavailabl e Tom, Micha Primary Care Unavailable Cathy Collado Santiago V Attending Unavailabl e No, Physician Referring Unavailable Tom, Micha Primary Care Unavailable No, Physician Referring Unavailable Sammy Mauricio Attending Unavailable Ellis Alford MD Primary Care Provider Cathy SALGADO, Dr. Henderson Attending Provider Cathy SALGADO, Dr. Henderson Referring Provider [phone] Rocío, Chalon Primary Care Unavailable Eber Nemo Referring Unavailable LuisGladys montañoney Attending Unavailable Rocío, Chalon Primary Care Unavailable Valerie, Jayaprakas Referring Unavailable Valerie, Jayaprakas Attending Unavailable Maria Dolores Trimbles Attending Unavailable Rocío, Chalon Primary Care Unavailable PraMaria Dolores chapas Referring Unavailable Rocío, Chalon Primary Care Unavailable Cathy, Santiago Referring Unavailable Cathy, Santiago Attending Unavailable Sammy Mauricio PA-C Unavailable Unavailable [place] Shok[place], Chsae L Attending Unavailable Tom, Micha Primary Care Unavailable [place], Chase L Referring Unavailable Cathy Jr, Santiago V Attending Unavailabl e [place], Chase L Referring Unavailable Tom, Micha Primary Care Unavailable Cathy Jr, Santiago V Attending Unavailabl e [place], Chase L Referring Unavailable Tom, Micha Primary Care Unavailable Cathy Jr, Santiago V Attending Unavailabl e [place], Chase L Referring Unavailable Tom, Micha Primary Care Unavailable Cathy Jr, Santiago V Attending Unavailabl e No, Physician Referring Unavailable Tom, Micha Primary Care Unavailable Anisa Rosas Attending Unavailable Cathy Jr, Santiago V Referring Unavailabl e Tom, Micha Primary Care Unavailable Cathy Jr, Santiago V Attending Unavailabl e Cathy Jr, Santiago V Attending Unavailabl e No, Physician Referring Unavailable Tom, Micha Primary Care Unavailable Sammy Mauricio Attending Unavailable Tom, Micha Primary Care Unavailable Chucky More Attending Unavailable Cathy Jr, Santiago V Referring Unavailabl e Tom, Micha Primary Care Unavailable Cathy Jr, Santiago V Attending Unavailabl e No, Physician Referring Unavailable Tom, Micha Primary Care Unavailable Sammy Mauricio Attending Unavailable No, Physician Referring Unavailable Tom, Micha Primary Care Unavailable Cathy Jr, Santiago V Attending Unavailabl e No, Physician Referring Unavailable Tom, Micha Primary Care Unavailable Sammy Mauricio Attending Unavailable No, Physician Referring Unavailable Tom, Micha Primary Care Unavailable Sammy Mauricio Attending Unavailable Tom, Micha Primary Care Unavailable Sammy Mauricio Referring Unavailable Sammy Mauricio Attending Unavailable Tom, Micha Primary Care Unavailable Sammy Mauricio Referring Unavailable Santiago Morgan Jr, V Attending UnavailMicha Erickson Primary Care Unavailable Santiago Morgan Jr, V Referring Unavailjean-pierre ryan Allergies Allergy Classification Reported Allergen(s) Allergy Type Date of Onset Reaction(s) Facility (4 sources) peanut; Translations: [PEANUTS] Food Allergy 11-02-2010 [facility] (1 source) cat dander Drug allergy (disorder) 09-16-2023 [facility] Repository Medications Current Medications Medication Drug Class(es) Dates Sig (Normalized) Sig (Original) acetaminophen 500 mg oral capsule (4 sources) Start: 12-09-2024 take 1 capsule by mouth every six hours Mapap (acetaminophen) 500 mg capsule take 1 capsule by oral route every 6 hours 1 capsule - Active Start: 10-28-2024 Acetaminophen Extra Strength 500 mg tablet 2 tablets q 8 hrs orally for 7 days - Active Take as needed after 7 days Start: 10-09-2024 take 1-2 tablets by mouth at bedtime Tylenol 325 mg tablet take 1-2 tablet by oral route BEFORE BEDTIME - Active Start: 10-09-2024 take 1 tablet by mary th in the morning Tylenol Arthritis Pain 650 mg tablet,extended release take 1-2 tablet by oral route in the AM - Active Comment on above: Take as needed after 7 days aspirin 81 mg delayed release oral tablet (1 source) Platelet Aggregation Inhibitor, Nonsteroidal Anti-inflammatory Drug Start: 10-28-2024 aspirin 81 mg tablet,delayed release one tablet twice a day for DVT - Active Take upon completion of Xarelto Comment on above: Take upon completion of Xarelto calcium carbonate 1500 mg / cholecalciferol 500 unt oral capsule (2 sources) Vitamin D Start: 09-16-2023 Calcium Carbonate-Vitamin D3 (Calcium 600 With Vitamin D3) 600 mg-12.5 mcg (500 unit) capsule Active NMA PO September 16, 2023 12:00am calcium carbonate/vitamin D2 (CALCIUM + VITAMIN D ORAL) (3 sources) calcium carbonate/vitamin D2 (CALCIUM + VITAMIN D ORAL) Take by mouth. Active calcium carbonat e/vitamin D2 (CALCIUM + VITAMIN D ORAL) Take by mouth. 0 Active Comment on above: Take by mouth. calcium-vit d3 (UD) BUCCAL (1 source) Start: 10-10-19 25 calcium-vit d3 (UD) BUCCAL TAKE 1 AFTER BREAKFAST AND 1 AFTER DINNER - Active celecoxib 100 mg oral capsule (2 sources) Nonsteroidal Anti-inflammatory Drug Start: 09-16-19 24 take 1 capsule by mouth twice daily Celecoxib (Celebrex) 100 mg capsule Active 100 mg PO TWICE A DAY 60 0 September 16, 2023 12:00am Do not take in conjunction with other NSAID. Tylenol is okay. cephalexin 500 mg oral capsule (1 source) Cephalosporin Antibacterial Start: 10-29-19 25 take 1 capsule by mouth every eight hours cephalexin 500 mg capsule Take one capsule by mouth every eight hours - Active Take 1 every 8 hours for 3 doses Comment on above: Take 1 every 8 hours for 3 doses cetirizine hydrochloride 10 mg oral tablet (3 sources) Histamine-1 Receptor Antagonist take 1 tablet by mouth once daily cetirizine (ZYRTEC) 10 mg ORAL tablet Take 10 mg by mouth once daily. Active Comment on above: Take 10 mg by mouth once daily. ibuprofen 200 mg oral capsule (1 source) Nonsteroidal Anti-inflammatory Drug Start: 10-10-19 ibuprofen 200 mg capsule TAKE 200 MG UP TO TWO DAYS A WEEK - Active omeprazole 20 mg delayed release oral capsule (5 sources) Proton Pump Inhibitor Start: 10-10-19 25 omeprazole 20 mg capsule,delayed release take 1 by oral route NEEDED - Active Start: 09-16-2023 take 1 capsule by mo ut once daily as needed Omeprazole 10 mg capsule,delayed release(DR/EC) Active 10 mg PO DAILY as needed September 16, 2023 12:00am Start: 06-26-2018 take 1 capsule by mo uth once daily omeprazole (PRILOSEC) 40 mg capsule Take 1 capsule by mouth once daily. 06/26/2018 Active ondansetron 4 mg oral tablet (1 source) Serotonin-3 Receptor Antagonist Start: 10-28-2024 ondansetron HCl 4 mg tablet 1T every 8 hours prn for nausea/vomiting - Active oxyCODONE hydrochloride 5 mg oral tablet (1 source) Opioid Agonist Start: 10-28-2024 take 1-2 tablets by mouth every four to six hours as needed for pain oxycodone 5 mg tablet 1-2 po q 4-6 hrs prn pain - Active Z96.60 - 7 Day Supply Comment on above: Z96.60 - 7 Day Suppl y propylene glycol 6 mg/ml ophthalmic solution (2 sources) Start: 09-16-2023 take 0.6 drop(s) into the eye(s) once daily as needed Propylene Glycol (Systane Complete) 0.6 % drops Active 1 NMA OPHTHALMIC DAILY as needed September 16, 2023 12:00am rivaroxaban 10 mg oral tablet (1 source) Factor Xa Inhibitor Start: 10-28-2024 inject 1 mL by subcutaneous injection once daily Xarelto 10 mg tablet 1 tablet daily for 14 days - Active If insurance does not cover or other patient barriers exist, then change to Lovenox 40mg/0.4 ml mg subcutaneous injection daily dispense number 14. Comment on above: If insurance does no t cover or other patient barriers exist, then change to Lovenox 40mg/0.4 ml mg subcutaneous injection daily dispense number 14. traMADol hydrochloride 50 mg oral tablet (1 source) Opioid Agonist Start: 10-28-2024 take 1-2 tablets by mouth every six hours as needed for pain tramadol 50 mg tablet 1-2 po q 6 hours prn pain - Active Z96.60 - 7 Day Supply Comment on above: Z96.60 - 7 Day Suppl y Problems Active Problems Problem Classification Problem Date Documented Da te Episodic/Chronic Chronic kidney disease (2 sources) Chronic kidney disease, unspecified Chronic Chronic kidney disease (1 source) Chronic kidney disease; Translations: [Chronic kidney disease, stage 3a] Onset: 06-15-2024 Esophageal disorders (2 sources) Gastro-esophageal reflux disease without esophagitis Chronic Immunizations and screening for infectious disease (1 source) Encounter for screening for human papillomavirus (HPV); Translations: [Screening for human papillomavirus (HPV)] Onset: 08-13-2024 Episodic Menopausal disorders (1 source) Vaginal dryness; Translations: [Menopausal and female climacteric states] 08-14-2023 Chronic Nonmalignant breast conditions (2 sources) Breast finding ; Translations: [Dense breast tissue] 08-14-2023 Episodic Osteoarthritis (20 sources) Unilateral primary osteoarthritis, right hip; Translations: [Bilateral primary osteoarthritis of hip] Onset: 05-13-2024 Chronic Other acquired deformities (2 sources) Scoliosis deformity of spine; Translations: [Scoliosis, unspecified] 09-16-2023 Chronic Other bone disease and musculoskeletal deformities (7 sources) Adolescent idiopathic scoliosis, thoracolumbar region; Translations: [Adolescent idiopathic scoliosis of thoracolumbar spine] Onset: 06-08-2024 Chronic Other congenital anomalies (2 sources) Congenital dislocation of hip; Translations: [Congenital dislocation of hip, unspecified] 09-16-2023 Chronic Other connective tissue disease (5 sources) Presence of right artificial hip joint; Translations: [Status post right hip replacement] Onset: 12-09-2024 Chronic Other nutritional; endocrine; and metabolic disorders (2 sources) Other obesity Chronic Residual codes; unclassified (1 source) Postmenopausal state; Translations: [Asymptomatic menopausal state] 08-14-2023 Episodic Residual codes; unclassified (2 sources) Other specified health status Episodic Unclassified (1 source) Dense breast tissue; Translations: [Dense breast tissue] Onset: 08-13-2024 Past or Other Problems Problem Classification Problem Date Documented Da te Episodic/Chronic Other acquired deformities (9 sources) Acquired deformity of pelvis; Translations: [Pelvic obliquity] Onset: 05-13-2024 Episodic Other non-traumatic joint disorders (9 sources) Pain in right hip; Translations: [Right hip pain] Onset: 05-13-2024 Episodic Other non-traumatic joint disorders (9 sources) Pain in left hip; Translations: [Left hip pain] Onset: 05-13-2024 Episodic Other screening for suspected conditions (not mental disorders or infectious disease) (7 sources) Patient encounter status; Translations: [Encounter for screening mammogram for malignant neoplasm of breast] Onset: 08-13-2024 08-14-2023 Episodic Results Test Name Value Interpretation Reference Range Facility PT D/C Summary (1)on 025 PT D/C Summary (1) [facility] [address] [place] [address] [address] [place] [address] / REHABILITATION SERVICES DISCHARGE SUMMARY MR#: [id number] Acct: [id number] Name: VENUS RINCON Rep #: [id number] : 1965 59 From: Abdifatah Morataya PT, ATC Referring Dr.: Dr. Santiago Morgan MD Status: REG RCR Insurance: [facility] [employer]Y INSURANCE Discharge Summary D/C summary: It has been my pleasure to treat VENUS RINCON referred by Dr. Santiago Morgan MD, with the diagnosis of R KEYON 10/29/24 for a total of 19 visit(s). Discharge Date: Please see the following information for a summary of their discharge status. Subjective Subjective: Pt is ready for HEP Pain R KEYON: Pain Intensity (Out of 10): 2 Overall Improvement % Improvement: 75 Objective Objective/Function: Pt is now I with HEP Goals Goal 1:: Decrease R hip pain x 50% to aid with sleep Goal Progress: Progressing Goal 2:: Increase R hip strength to equal 90% of L hip strength to aid with stair negotiation Goal Progress: Goal Met Goal 3:: Pt will perform the TUG in under 30 seconds to aid with mobility Goal Progress: Goal Met Goal 4:: Pt will perform 10 sit to stand transfers in 30 sec to aid with transfer efficiency Goal Progress: Goal Met Goal 5:: I with HEP Goal Progress: Progressing Plan Plan: Discharge to HEP D/C Information d/c sentence: If there are questions or concerns regarding this patient's physical therapy, please feel free to call me at [phone]. Thank you for the referral of this patient. Sincerely, Abdifatah Morataya, PT, ATC Balance/Gait/Function al tests Balance/Special Test Scores WOMAC Total Score: 66 WOMAC Percentage: 31.2500 Improvement % Improvement: 75 01/22/25 1437 CC: Dr. Santiago Morgan MD; Dr. Ellis Alford MD [facility] Signed Normal [facility] Re-Evaluation - PT (1)on Re-Evaluation - PT (1) [facility] Physical Therapy [address] [place] [address] / REEVALUATION / MEDICARE RECERTIFICATION PHYSICAL THERAPY MR#: [id number] Acct: [id number] Name: VENUS RINCON Rep #: [id number] : 1965 59 From: Abdifatah Morataya PT, ATC Referring Dr.: Dr. Santiago Morgan MD Status:REG RCR Insurance: [facility] [employer] INSURANCE Re-Evaluation Intro: Dr. Santiago Morgan MD, It has been my pleasure to treat VENUS RINCON over the last 9 visits for R KEYON 10/29/24. Please see the progress note below for an update on the physical therapy plan of care! Subjective Subjective: I have a lot of pain in my groin today. I might have walked too much this past week Objective Objective/Function: R hip pain 08/03 R hip MMT: flex= 17, ext= 28 #F R hip ROM: flex= 85, ext= 0 degrees TU.62 sec sit to stands: 13 reps in 30 sec Plan Plan Plan: Continue with strengthening at this time. Focus on restoring a more normalized gait pattern. Balance/Gait/Function al tests Balance/Special Test Scores WOMAC Total Score: 66 WOMAC Percentage: 31.2500 Goals Goals Goal 1:: Decrease R hip pain x 50% to aid with sleep Goal Time Frame: 6-8 Weeks Goal Progress: Progressing Goal 2:: Increase R hip strength to equal 90% of L hip strength to aid with stair negotiation Goal Time Frame: 6-8 Weeks Goal Progress: Goal Met Goal 3:: Pt will perform the TUG in under 30 seconds to aid with mobility Goal Time Frame: 6-8 Weeks Goal Progress: Goal Met Goal 4:: Pt will perform 10 sit to stand transfers in 30 sec to aid with transfer efficiency Goal Time Frame: 6-8 Weeks Goal Progress: Goal Met Goal 5:: I with HEP Goal Time Frame: 6-8 Weeks Goal Progress: Progressing Anticipated Interventions Anticipated Interventions Patient/Client Instruction: Educate patient on: Condition and Plan of Care For the Purpose of:: To improve self management Therapeutic Exercise to Include: Strength training, Endurance training, Balance training, Flexibilty training, Gait and locomotor training and Dynamic Lumbar Stabilization For the Purpose of:: To decrease pain, To increase ROM and To improve muscle performance and motor function Re-Evaluation Ending Re-evaluation ending: Please do not hesitate to contact me at [phone] by phone or if you have questions or concerns regarding this new plan of care! Sincerely, Abdifatah Morataya, PT, ATC 12/07/24 1134 CC: Dr. Santiago Morgan MD; Dr. Ellis Alford MD [facility] Signed For Medicare only, by signing this I certify the plan of care. Physicians Signature Date Normal [facility] Urine Cultureon 11-14-2024 URC Below infection level. Mixed Gram Pos Gram Neg Org [place] Count 1000-10,000 MIXC Mixed contaminants. Submit a new specimen if indicated. Normal [facility] Comment on above: Performed By: #### M 100.2200 #### [facility] [address] [place], [address] Urine cultureOrdered By: Mikey Jacobsen on 11-12-2024 Bacteria identified Cx Nom (U) Mixed Gram Pos & Gram Neg Org Abnormal [facility] Inital Evaluation (1) - PTon 11-02-2024 Inital Evaluation (1) - PT [facility] Physical Therapy [address] [place] [address] / REHABILITATION SERVICES INITIAL EVALUATION MR#: [id number] Acct: [id number] Name: VENUS RINCON Rep #: [id number] : 1965 59 From: Abdifatah Morataya PT, ATC Referring Dr.: Dr. Santiago Morgan MD Status: REG RCR Insurance: [facility] [employer] INSURANCE Patient's Visit Information Visit Information Visit Information: VENUS RINCON is a 59 year old F referred to Physical Therapy by Dr. Santiago Morgan MD with a diagnosis of R KEYON 10/29/24. Date of Evaluation: 11/02/24 Physical Therapist: Abdifatah Morataya, PT, ATC Visit Plan Frequency: 2x /Week Duration: 6-8 weeks Plan: R LE stretching and strengthening, balance and proprio, core strengthening, nustep, gait training, stair negotiation, and HEP Subjective Subjective: DOS: 10/29/24. Pt notes she had a R TKA performed at that time. Pt reports she had a lateral approach performed. Pt notes she had a chronic Hx of R hip pain prior to having this s urgery. Pt reports she has not been given any restrictions at this time. Pt reports she is in less pain than she thought, but she still is in a moderate amount of pain. Pt reports she has some tingling and numbness in her R ankle and foot. Pt reports she has sleep difficulty at this time secondary to pain. 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 Pt lives in a ranch style house, but has a finished basement that they spend a lot of time in. Pt notes she has 12 steps to get to her basement. Pt reports she was given a HEP at the hospital that she has been performing as ordered. 5/10 pain while sitting here at rest, 9/10 pain at worst (with normal ambulation) Pain R KEYON: Pain Intensity (Out of 10): 5 Pain Intensity Range: 9 Objective Objective: Neuro: B LE sensation is WNL to light touch Observation: Incision is still covered. No obvious signs of infection. MMT: L hip flex= 14, ext= 19, abd= 28 #F; R hip flex= 7, ext= 0, abd= 8 #F ROM: L hip flex= 85, ext= 0, abd= 45 degrees; R hip flex= 65, ext= -20, abd= 0 degrees Tu min, 3 sec sit to stand: 5 reps Balance/Special Test Scores WOMAC Total Score: 66 WOMAC Percentatge: 31.2500 Goals Goal 1:: Decrease R hip pain x 50% to aid with sleep Goal Time Frame: 6-8 Weeks Goal 2:: Increase R hip strength to equal 90% of L hip strength to aid with stair negotiation Goal Time Frame: 6-8 Weeks Goal 3:: Pt will perform the TUG in under 30 seconds to aid with mobility Goal Time Frame: 6-8 Weeks Goal 4:: Pt will perform 10 sit to stand transfers in 30 sec to aid with transfer efficiency Goal Time Frame: 6-8 Weeks Goal 5:: I with HEP Goal Time Frame: 6-8 Weeks Rehabilitation Potential Physical Therapy Diagnosis: Pt has R hip pain, weakness, and limited ROM secondary to R KEYON Rehabilitation Potential: Good Anticipated Interventions Patient/Client Instruction: Educate patient on: Condition and Plan of Care For the Purpose of:: To improve self management Therapeutic Exercise to Include: Strength training, Endurance training, Balance training, Flexibilty training, Gait and locomotor training and Dynamic Lumbar Stabilization For the Purpose of:: To decrease pain, To increase ROM and To improve muscle performance and motor function Text: Thank you for the opportunity to evaluate your patient. For Medicare and Medicare HMO plans, please review the plan of care and approve it. It will need to be FAXED BACK to us at [phone] for Medicare purposes. For Medicare only, by signing this I certify the plan of care. Please let me know if there are questions or concerns regarding this plan of care. Physician Signature: Date : 11/02/24 1043 CC: Dr. Santiago Morgan MD; Dr. Ellis Alford MD [facility] Signed Normal [facility] Basic metabolic 2000 panelon 10-09-2024 Anion gap [Moles/Vol] 9 mmol/L Normal 6-18 [facility] Comment on above: Performed By: #### 2 4321-2 #### [facility] [address] [place] [address] Calcium [Mass/Vol] 9.6 mg/dL Normal 8.9-10.3 [facility] Comment on above: Performed By: #### 2 4321-2 #### [facility] [address] [place] [address] Chloride [Moles/Vol] 104 mmol/L Normal 98-[address] [facility] Comment on above: Performed By: #### 2 4321-2 #### [facility] [address] [place] [address] CO2 [Moles/Vol] 27 mmol/L Normal 22-32 [facility] Comment on above: Performed By: #### 2 4321-2 #### [facility] [address] [place] [address] Creatinine [Mass/Vol] 1.04 mg/dL Normal 0.60-1.30 [facility] Comment on above: Performed By: #### 2 4321-2 #### [facility] [address] [place] [address] GFR/1.73 sq M.predicted among non-blacks MDRD (S/P/Bld) [Vol rate/Area] 63 mL/min/{1.73_m2} Normal >=60 [facility] Comment on above: Result Comment: Calc ulation based on the Chronic Kidney Disease Epidemiology Collaboration (CKD-EPI) equation refit without adjustment for race. Performed By: #### 2 4321-2 #### [facility] [address] [place] [address] Glucose [Mass/Vol] 83 mg/dL Normal 70-99 [facility] Comment on above: Performed By: #### 2 4321-2 #### [facility] [address] [place] [address] Potassium [Moles/Vol] 4.2 mmol/L Normal 3.6-5.1 [facility] Comment on above: Performed By: #### 2 4321-2 #### [facility] [address] [place] [address] Sodium [Moles/Vol] 140 mmol/L Normal 136-145 [facility] Comment on above: Performed By: #### 2 4321-2 #### [facility] [address] [place] [address] Urea nitrogen [Mass/Vol] 19 mg/dL Normal 8-20 [facility] Comment on above: Performed By: #### 2 4321-2 #### [facility] [address] [place] [address] Urea nitrogen/Creatinine [Mass ratio] 18.3 mg/mg Normal 12.0-20.0 [facility] Comment on above: Performed By: #### 2 4321-2 #### [facility] [address] [place] [address] CBC W Differential panel, me thod unspecified (Bld)on 10-09-2024 Basophils (Bld) [#/Vol] 0.07 10*3/uL Normal 0.00-0.20 [facility] Comment on above: Performed By: #### 6 9742-5 #### [facility] [address] [place] [address] Basophils/100 WBC (Bld) 0.8 % Normal 0.0-2.0 [facility] Comment on above: Performed By: #### 6 9742-5 #### [facility] [address] [place] [address] Eosinophils (Bld) [#/Vol] 0.17 10*3/uL Normal 0.00-0.70 [facility] [facility] Comment on above: Performed By: #### 6 9742-5 #### [facility] [address] [place] [address] 83448 Eosinophils/100 WBC (Bld) 2.0 % Normal 0.0-7.0 [facility] Comment on above: Performed By: #### 6 9742-5 #### [facility] [address] [place] [address] 00560 Erythrocyte distribution width (RBC) [Ratio] 14.0 % Normal 11.0-14.8 [facility] Comment on above: Performed By: #### 6 9742-5 #### [facility] [address] [place] [address] 06195 Hematocrit (Bld) [Volume fraction] 38.8 % Normal 34.3-47.9 [facility] Comment on above: Performed By: #### 6 9742-5 #### [facility] [address] [place] [address] 23770 Hemoglobin (Bld) [Mass/Vol] 12.5 g/dL Normal 12.0-16.0 [facility] Comment on above: Performed By: #### 6 9742-5 #### [facility] [address] [place] [address] 82739 Immature granulocytes (Bld) [#/Vol] 0.02 10*3/uL Normal 0.00-0.10 [facility] Comment on above: Performed By: #### 6 9742-5 #### [facility] [address] [place] [address] 20049 Immature granulocytes/100 WBC (Bld) 0.2 % Normal 0.0-1.2 [facility] Comment on above: Performed By: #### 6 9742-5 #### [facility] [address] [place] [address] 26441 Lymphocytes (Bld) [#/Vol] 2.34 10*3/uL Normal 1.00-4.80 [facility] Comment on above: Performed By: #### 6 9742-5 #### [facility] [address] [place] [address] 12287 Lymphocytes/100 WBC (Bld) 27.1 % Normal 17.9-49.6 [facility] Comment on above: Performed By: #### 6 9742-5 #### [facility] [address] [place] [address] 80630 MCH 29.2 pcg Normal 27.0-34.0 [facility] Comment on above: Performed By: #### 6 9742-5 #### [facility] [address] [place] [address] 11254 MCHC (RBC) [Mass/Vol] 32.2 g/dL Normal 30.8-35.3 [facility] Comment on above: Performed By: #### 6 9742-5 #### [facility] [address] [place] [address] 67704 MCV (RBC) [Entitic vol] 90.7 fL Normal 80.0-97.0 [facility] Comment on above: Performed By: #### 6 9742-5 #### [facility] [address] [place] [address] 14805 Monocytes (Bld) [#/Vol] 0.57 10*3/uL Normal 0.00-0.90 [facility] Comment on above: Performed By: #### 6 9742-5 #### [facility] [address] [place] [address] 14259 Monocytes/100 WBC (Bld) 6.6 % Normal 0.0-12.0 M [facility] Comment on above: Performed By: #### 6 9742-5 #### [facility] [address] [place] [address] 88015 Neutrophils Absolute 5.48 K/mcL Normal 1.80-7.[address] [facility] Comment on above: Performed By: #### 6 9742-5 #### [facility] [address] [place] [address] 57748 Neutrophils/100 WBC (Bld) 63.3 % Normal 38.1-75.5 [facility] Comment on above: Performed By: #### 6 9742-5 #### [facility] [address] [place] [address] 67329 Platelet mean volume (Bld) [Entitic vol] 9.9 fL Normal 6.2-12.1 [facility] Comment on above: Performed By: #### 6 9742-5 #### [facility] [address] [place] [address] 42585 Platelets (Bld) [#/Vol] 440 10*3/uL High 142-424 [facility] Comment on above: Performed By: #### 6 9742-5 #### [facility] [address] [place] [address] 26432 RBC (Bld) [#/Vol] 4.28 10*6/uL Normal 3.74-5.34 [facility] Comment on above: Performed By: #### 6 9742-5 #### [facility] [address] [place] [address] 15119 WBC (Bld) [#/Vol] 8.7 10*3/uL Normal 4.6-10.2 [facility] Comment on above: Performed By: #### 6 9742-5 #### [facility] [address] [place] [address] 21436 Breast imaging reportOrdered By: Mary Moreno on 09-02-2024 Study report [facility] [address] [place] [address] SCRN MAMM (CAD)W/DANICA DRUMMONDAT MR#: [id number] Acct: [id number] Name: VENUS RINCON Rep #: [id number] : 1965 F 59 From: Antonette Moreno MD PCP: Dr. Ellis Alford MD Status: REG CL I Study:SCRN MAMM (CAD)W/DANICA BILAT Date of Exa m: 09/02/24 Exam# [id number] Ordering Dr: Bishnu Lambert CNM EXAM: SCRN MAMM (CAD)W/DANICA BILAT 09/02/2024 CLINICAL HISTORY: F, Age 59 y/o , SCREENING TECHNIQUE: Bilateral screening digital breast tomosynthesis with 2D and 3D images. Computeraided detection. COMPARISON: Prior exam(s) dated 08/29/2023, 07/11/2022. FINDINGS: TISSUE DENSITY: The breast tissue is heterogenously dense, which may obscure small masses. The mammogram demonstrates that the patient has dense breasts. Supplemental screening with whole breast ultrasound or MRI may be considered for further evaluation. Bilateral Breast Mammographic Findings: No significant masses, calcifications or other abnormalities are identified. BI/SCRN MAMM (CAD)W/DANICA BILAT IMPRESSION: Right Breast: BIRADS 1 NEGATIVE. Left Breast: BIRADS 1 NEGATIVE. OVERALL FINAL ASSESSMENT: BIRADS 1 NEGATIVE. RECOMMENDATION: Routine annual follow-up in 1 Year A letter with findings and recommendations will be mailed to the patient. Reading Location: [facility] CC: CORINNE Lambert; Dr. Ellis Alford MD ~ Bulb Weeder: Signed [facility] SCRN MAMM (CAD)W/DANICA BILATo n 09-02-2024 SCRN MAMM (CAD)W/DANICA BILAT [facility] Imaging Services [address] [place] [address] SCRN MAMM (CAD)W/DANICA BILAT MR#: [id number] Acct: [id number] Name: VENUS RINCON Rep #: [id number] : 1965 F 59 From: Mary Moreno MD PCP: Dr. Ellis Alford MD Status: REG CLI Study: SCRN MAMM (CAD)W/DANICA BILAT Date of Exam: 02/18 Exam# [id number] Ordering Dr: Nemo Lambert EXAM: SCRN MAMM (CAD)W/DANICA BILAT 09/02/2024 CLINICAL HISTORY: F, Age 59 y/o , SCREENING TECHNIQUE: Bilateral screening digital breast tomosynthesis with 2D and 3D images. Computer aided detection. COMPARISON: Prior exam(s) dated 08/29/2023, 07/11/2022. FINDINGS: TISSUE DENSITY: The breast tissue is heterogenously dense, which may obscure small masses. The mammogram demonstrates that the patient has dense breasts. Supplemental screening with whole breast ultrasound or MRI may be considered for further evaluation. Bilateral Breast Mammographic Findings: No significant masses, calcifications or other abnormalities are identified. BI/SCRN MAMM (CAD)W/DANICA BILAT IMPRESSION: Right Breast: BIRADS 1 NEGATIVE. Left Breast: BIRADS 1 NEGATIVE. OVERALL FINAL ASSESSMENT: BIRADS 1 NEGATIVE. RECOMMENDATION: Routine annual follow-up in 1 Year A letter with findings and recommendations will be mailed to the patient. Reading Location: [facility] CC: CORINNE Lambert; Dr. Ellis Alford MD Bulb Weeder: [facility] Office Visit (OBGYWM ) GEORGIVENUS SANDOVAL ([id number]) 1965 F Date Time Provider Department 08/13/24 2:45 PM NEMO LAMBERT During your visit today, we recorded the following information about you: Blood pressure Weight Height 120/72 79.8 kg 1.651 m Nemo Lambert APRN.CN 08/13/2024 4:03 PM Signed Venus is a 59 year old who presents for an annual gynecologic exam without complaints. Postmenopausal: Yes since age 53 HRT use: No. Sexually active: Yes Contraception: None Contraception frequency: N/A HPV vaccine: N/A Last pap smear: 07/06/2022 Normal History of abnormal pap: No Colposcopy: No. Leep: No. Cone biopsy: No. 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 History Comments: Sexual Activity: Yes; Male Contraception: None FAMILY HISTORY Problem Relation Age of Onset Diabetes Mother Hypertension Mother Uterine Cancer Mother Scoliosis Father No Known Problems Sister No Known Problems Maternal Grandmother No Known Problems Maternal Grandfather No Known Problems Paternal Grandmother No Known Problems Paternal Grandfather SOCIAL HISTORY Social History Tobacco Use Smoking status: Never Smokeless tobacco: Never Substance Use Topics Alcohol use: Yes Alcohol/week: 2.0 standard drinks of alcohol Types: 2 Cans of beer per week Comment: couple times a month Drug use: Never REVIEW OF SYSTEMS Abdomen: No abdominal pain, nausea, vomiting, diarrhea, or constipation. No bloating, early satiety, indigestion, or increased flatulence. Bladder: No dysuria, gross hematuria, urinary frequency, urinary urgency, or incontinence Breast: No breast lumps, nipple d/c, overlying skin changes, redness or skin retraction Allergies and current medication updated:Yes SENSITIVE EXAM: The sensitive examination was discussed with the Patient or Patient's Authorized Consultant Rn. As applicable, any other physician, advance practice provider, medical student, or other health professional student that will be observing or involved in the sensitive examination for educational or training purposes was discussed with the Patient or Authorized Consultant Rn. The Patient or Authorized Consultant Rn has agreed to proceed with the sensitive examination. (Sensitive examination includes inspection and/or palpation of the breasts, pelvis, prostate and anorectal regions). EXAM: BP 120/72 Ht 5' 5 (1.65m) Wt 176 lb (79.8kg) BMI 29.29 kg/(m2). GENERAL: pleasant, female in no apparent distress HEENT: Normocephalic, atraumatic, mucus membranes moist, and no lesions NECK: Supple and full range of motion DERMATOLOGY: Normal and without lesions BREAST: soft, non-tender, symmetric, no dominant mass, normal nipple-areolar complex, no lymphadenopathy, no nipple discharge, and fibrocystic changes CHEST: Normal inspiratory effort ABDOMEN: soft, non-tender, and no masses PELVIC: external genitalia normal, normal Bartholin's glands, urethra, Hemingway's glands, no vulvar lesions, no cervical lesions, good vaginal support, physiologic discharge present, normal appearing perineal body and perianal region, stenotic os BIMANUAL: uterus normal size, shape and consistency, no adnexal masses, non-tender, and no cervical motion tenderness RECTOVAGINAL: deferred. NEURO: alert and oriented x3,exam grossly non-focal EXTREMITIES: normal ASSESSMENT/PLAN: 1) Health maintenance: Pap done with HPV- Per patient's request due to family hx of uterine/cervical cancer- Patient informed that cervical os is stenotic and sample may be insufficient Mammogram ordered - Patient completes mammograms at [facility] Colon cancer screening: patient to discuss with PCP TSH/lipids/glucose: followed by PCP Vitamin D: followed by PCP 2) Follow up one year or sooner as needed Nemo Lambert APRN.CNM Allergies As of Date: 08/13/2024 Noted Allergy Reaction PEANUTS 11/02/2010 4 - Hives Date Reviewed: 08/13/2024 Reviewed by: Nemo Lambert APRN.CNM - Fully Assessed Reason for Visit: Well Woman [1463] Primary Visit Diagnosis:Encounter for gynecological examination (general) (routine) without abnormal findings [Z01.419] Other Visit Diagnoses:Encounter for screening mammogram for breast cancer [Z12.31] Dense breast tissue [R92.30] Screening for cervical cancer [Z12.4] Screening for human papillomavirus (HPV) [Z11.51] Order(s):PAP TEST [XYZ5252] Order #: [id number]. #:[id number] Prescriptions as of 08/13/2024 - omeprazole (PRILOSEC) 40 (more content not included)... Normal [facility] HIGH RISK HUMAN PAPILLOMA ANUEL (HPV), PCR FOR DETECTION AND GENOTYPINGon 08-13-2024 HPV 16 Ag Ql (Unsp spec) Not detected Normal Not detec ian [facility] Comment on above: Order Comment: Speci men Type: FLUID SPECIMEN Ordering Facility: [facility] Address: [address] [place] [address] Performed By: #### H PVHRT #### [facility] CLIA [id number] [address] [place] [address] [place] HPV 18 Ag Ql (Unsp spec) Not detected Normal Not detec ian [facility] Comment on above: Order Comment: Speci men Type: FLUID SPECIMEN Ordering Facility: [facility] Address: [address] [place] [address] Performed By: #### H PVHRT #### [facility] CLIA [id number] [address] [place] [address] [place] HPV 31+33+35+39+45+51+52+56+ 58+59+66+68 DNA DAT+probe Ql (Cvx) Not detected Normal Not detected [facility] Comment on above: Order Comment: Speci men Type: FLUID SPECIMEN Ordering Facility: [facility] Address: [address] [place] [address] Result Comment: High Risk HPV Other Type includes HPV types 31, 33, 35, 39, 45, 51, 52, 56, 58, 59, 66 and 68. Performed By: #### H PVHRT #### [facility] CLIA [id number] [address] [place] [address] [place] PAP TESTon 08-13-2024 ADEQUACY Satisfactory for interpretation. Normal [facility] Comment on above: Order Comment: Speci men Type: FLUID SPECIMEN Ordering Facility: [facility] Address: [address] [place] [address] Performed By: #### L [id number] #### [facility] CLIA [id number] [address] [place] [address] [place] CASE REPORT Normal [facility] Comment on above: Order Comment: Speci men Type: FLUID SPECIMEN Ordering Facility: [facility] Address: [address] [place] [address] Result Comment: Gyne cologic Cytology Report Case: [id number] Authorizing Provider: Nemo Lambert APRN.CNM Collected: 08/13/2024 04:02 PM Ordering Location: OB/Gynecology Received: 08/13/2024 04:47 PM First Screen: Aramouni, [place], [place], ASCP Specimen: Pap Test, ThinPrep, Cervix Performed By: #### L [id number] #### [facility] CLIA [id number] [address] [place] [address] [place] CLINICAL HISTORY, CYTOLOGY, REAL ESTATE INSTRUCTOR Routine Exam Normal [facility] Comment on above: Order Comment: Speci men Type: FLUID SPECIMEN Ordering Facility: [facility] Address: [address] [place] [address] Result Comment: No M enses, Other (Specify) Performed By: #### L [id number] #### [facility] CLIA [id number] [address] [place] [address] [place] CYTOLOGY PAP OTHER INTERPRETATION Atrophic specimen. Normal [facility] Comment on above: Order Comment: Speci men Type: FLUID SPECIMEN Ordering Facility: [facility] Address: [address] [place] [address] Performed By: #### L [id number] #### [facility] CLIA [id number] [address] [place] [address] [place] FINAL PERFORMING LAB Normal [facility] Comment on above: Order Comment: Speci men Type: FLUID SPECIMEN Ordering Facility: [facility] Address: [address] [place] [address] Result Comment: Tech nical component, desk lieutenant screening performed at [facility], [address] [place] [address] CLIA# [id number] Diagnostic interpretation performed at [facility], [address] [place], [place] [id number] CLIA# [id number] Supervisor [place]: Venkata Sultana M.D. Performed By: #### L [id number] #### [facility] CLIA [id number] [address] [place] [address] [place] INTERPRETATION, CYTOLOGY, REAL ESTATE INSTRUCTOR Normal [facility] Comment on above: Order Comment: Speci men Type: FLUID SPECIMEN Ordering Facility: [facility] Address: [address] [place] [address] Result Comment: Nega tive for intraepithelial lesion or malignancy. at 1530 EDT Performed By: #### L [id number] #### [facility] CLIA [id number] [address] [place] [address] [place] PAP DISCLAIMER COMMENT The Pap Smear is a screening test for cervical cancer. False negative results occur with all screening tests, emphasizing the need for rescreening at recommended intervals, and clinical correlation. Normal [facility] Comment on above: Order Comment: Speci men Type: FLUID SPECIMEN Ordering Facility: [facility] Address: [address] [place] [address] Performed By: #### L [id number] #### [facility] CLIA [id number] [address] [place] [address] [place] PAP BIOFUELS PRODUCT DEVELOPMENT MANAGER COMMENT This specimen has been analyzed by the ThinPrep Imaging System, an automated imaging and review system, which assists the laboratory in evaluating cells on ThinPrep Pap tests. Following automated imaging, selected murphy from every slide are reviewed by a desk lieutenant. Normal [facility] Comment on above: Order Comment: Speci men Type: FLUID SPECIMEN Ordering Facility: [facility] Address: [address] [place] [address] Performed By: #### L [id number] #### [facility] CLIA [id number] [address] [place] [address] [place] Bilirubin Test strip Ql (U)O rdered By: Souleymane Padilla on 05-21-2024 Bilirubin Ql (U) Negative Negative [facility] Blood urea nitrogen (BUN)/cr eatinine ratioOrdered By: Souleymane Padilla on 05-21-2024 Urea nitrogen/Creatinine [Mass ratio] 22.2 mg/mg High 10-20 [facility] Carbon dioxide measurementOr dered By: Souleymane Padilla on 05-21-2024 CO2 [Moles/Vol] 29.0 mmol/L 21.0-32.0 [facility] Chloride measurementOrdered By: Souleymane Padilla on 05-21-2024 Chloride [Moles/Vol] 104 mmol/L 98-107 [facility] Estimated glomerular filtrat ion rate (GFR) AmericanOrdered By: Souleymane Padilla on 05-21-2024 Estimated GFR (MDRD) Amer 78 mL/min >60 [facility] Comment on above: GFR Calc Glomerular filtration rate ( GFR) estimationOrdered By: Souleymane Padilla on 05-21-2024 Estimated GFR (MDRD) Non-Af Amer 65 mL/min >60 [facility] Comment on above: Non- GFR Calc Glucose Ql (U)Ordered By: Davonte Padilla on 05-21-2024 Urine Glucose (UA) Normal mg/dl Normal [facility] Glucose measurementOrdered B y: Souleymane Padilla on 05-21-2024 Glucose [Mass/Vol] 86 mg/dL 74-106 [facility] Ketones Test strip Ql (U)Ord ered By: Souleymane Padilla on 05-21-2024 Ketones Ql (U) Negative Negative [facility] Nitrite Test strip Ql (U)Ord ered By: Souleymane Padilla on 05-21-2024 Nitrite Ql (U) Negative Negative [facility] Phosphorus measurementOrdere d By: Souleymane Padilla on 05-21-2024 Phosphorus Level 3.7 mg/dL 2.5-4.9 [facility] Potassium measurementOrdered By: Souleymane Padilla on 05-21-2024 Potassium [Moles/Vol] 4.1 mmol/L 3.5-5.1 [facility] Protein Test strip Ql (U)Ord ered By: Souleymane Padilla on 05-21-2024 Protein Ql (U) Negative Negative [facility] Protein+Creatinine Ratio,Uri neon 05-21-2024 PROT:CRE RATIO 182 mg/g CRE Normal 0-200 [facility] Comment on above: Performed By: #### L 500.3600, L501.0900, L400.2010 #### [facility] [address] [place], [address] Protein (U) [Mass/Vol] 8.1 mg/dL Normal <11.9 [facility] Comment on above: Performed By: #### L 500.3600, L501.0900, L400.2010 #### [facility] [address] [place], [address] UR CREAT 44.40 mg/dL Normal NO RANGE EST. [facility] Comment on above: Performed By: #### L 500.3600, L501.0900, L400.2010 #### [facility] [address] [place], [address] Protein/Creatinine (U) [Mass ratio]Ordered By: Souleymane Padilla on 05-21-2024 Urine Protein/Creatinine Ratio 182 mg/g CRE 0-200 [facility] Random urine protein measure mentOrdered By: Souleymane Padilla on 05-21-2024 Protein (U) [Mass/Vol] 8.1 mg/dL 0.0-11.8 [facility] Renal Profileon 05-21-2024 Albumin [Mass/Vol] 3.5 g/dL Normal 3.2-5.0 [facility] Comment on above: Performed By: #### L 500.3600, L501.0900, L400.2010 #### [facility] [address] [place], [address] BUN/CRE 22.2 RATIO High 10-20 [facility] Comment on above: Performed By: #### L 500.3600, L501.0900, L400 #### [facility] [address] [place], [address] CA,Total 9.6 mg/dL Normal 8.5-10.1 [facility] Comment on above: Performed By: #### L 500.3600, L501.0900, L400.2010 #### [facility] [address] [place], [address] Chloride [Moles/Vol] 104 mmol/L Normal 98-107 [facility] Comment on above: Performed By: #### L 500.3600, L501.0900, L4 #### [facility] [address] [place], [address] CO2 [Moles/Vol] 29.0 mmol/L Normal 21.0-32.0 [facility] Comment on above: Performed By: #### L 500.3600, L501.0900, L4 #### [facility] [address] [place], [address] Creatinine [Mass/Vol] 0.95 mg/dL Normal 0.55-1.02 [facility] Comment on above: Result Comment: The validity of the calculated GFR GFRAA in patients over 70 years has not been determined. Clinical correlation is essential. Performed By: #### L 500.3600, L501.0900, L4 #### [facility] [address] [place], [address] EST GFR - AA 78 mL/min Normal >60 [facility] Comment on above: Result Comment: Afri can [place] GFR Calc Performed By: #### L 500.3600, L501.0900, L400 #### [facility] [address] [place], [address] GFR/1.73 sq M.predicted among non-blacks MDRD (S/P/Bld) [Vol rate/Area] 65 mL/min/{1.73_m2} Normal >60 [facility] Comment on above: Result Comment: Non- GFR Calc Performed By: #### L 500.3600, L501.0900, L4 #### [facility] [address] [place], [address] Glucose [Mass/Vol] 86 mg/dL Normal 74-106 [facility] Comment on above: Performed By: #### L 500.3600, L501.0900, L4 #### [facility] [address] [place], [address] Phosphate [Mass/Vol] 3.7 mg/dL Normal 2.5-4.9 [facility] Comment on above: Performed By: #### L 500.3600, L501.0900, L4 #### [facility] [address] [place], [address] Potassium [Moles/Vol] 4.1 mmol/L Normal 3.5-5.1 [facility] Comment on above: Performed By: #### L 500.3600, L501.0900, L4 #### [facility] [address] [place], [address] Sodium [Moles/Vol] 138 mmol/L Normal 136-145 [facility] Comment on above: Performed By: #### L 500.3600, L501.0900, L4 #### [facility] [address] [place], [address] Urea nitrogen [Mass/Vol] 21 mg/dL High 7-18 [facility] Comment on above: Performed By: #### L 500.3600, L501.0900, L400 #### [facility] [address] [place], [address] Serum or plasma albumin chaz urement (mass/volume)Ordered By: Souleymane Padilla on 05-21-2024 Albumin [Mass/Vol] 3.5 g/dL 3.2-5.0 [facility] [facility] Serum or plasma calcium chaz urement (mass/volume)Ordered By: Souleymane Padilla on 05-21-2024 Calcium [Mass/Vol] 9.6 mg/dL 8.5-10.1 [facility] Serum or plasma creatinine m easurement (mass/volume)Ordered By: Souleymane Padilla on 05-21-2024 Creatinine [Mass/Vol] 0.95 mg/dL 0.55-1.02 [facility] Comment on above: The validity of the calculated GFR & GFRAA in patients over 70 years has not been determined. Clinical correlation is essential. Serum or plasma urea nitroge n measurement (mass/volume)Ordered By: Souleymane Padilla on 05-21-2024 Urea nitrogen [Mass/Vol] 21 mg/dL High 7-18 [facility] Sodium levelOrdered By: Romario Padilla on 05-21-2024 Sodium [Moles/Vol] 138 mmol/L 136-145 [facility] Urinalysis, Routine (Dipstic k)on 05-21-2024 BILIRUBIN URINE Negative Normal Negative [facility] Comment on above: Order Comment: Urine , Random Performed By: #### L 500.3600, L501.0900, L4 #### [facility] [address] [place], [address] Clarity (U) Sl. Cloudy Normal Clear [facility] Comment on above: Order Comment: Urine , Random Performed By: #### L 500.3600, L501.0900, L400 #### [facility] [address] [place], [address] Color (U) Yellow Normal Yellow [facility] Comment on above: Order Comment: Urine , Random Performed By: #### L 500.3600, L501.0900, L400 #### [facility] [address] [place], [address] GLUCOSE, UR Normal Normal Normal [facility] Comment on above: Order Comment: Urine , Random Performed By: #### L 500.3600, L501.0900, L400.2010 #### [facility] [address] [place], [address] KETONE UR Negative Normal Negative [facility] Comment on above: Order Comment: Urine , Random Performed By: #### L 500.3600, L501.0900, L400.2010 #### [facility] [address] [place], [address] LEUK ESTERASE 25 /ul Abnormal Negative [facility] Comment on above: Order Comment: Urine , Random Performed By: #### L 500.3600, L501.0900, L400.2010 #### [facility] [address] [place], [address] Nitrite Ql (U) Negative Normal Negative [facility] Comment on above: Order Comment: Urine , Random Performed By: #### L 500.3600, L501.0900, L400.2010 #### [facility] [address] [place], [address] OCCULT BLOOD-UR 250 /ul Abnormal Negative [facility] Comment on above: Order Comment: Urine , Random Performed By: #### L 500.3600, L501.0900, L400.2010 #### [facility] [address] [place], [address] pH UR 6.5 Normal 5.0 - 8.0 [facility] Comment on above: Order Comment: Urine , Random Performed By: #### L 500.3600, L501.0900, L400.2010 #### [facility] [address] [place], [address] PROT DIPSTX Negative Normal Negative [facility] Comment on above: Order Comment: Urine , Random Performed By: #### L 500.3600, L501.0900, L400.2010 #### [facility] [address] [place], [address] SP.GR. DIPSTX 1.010 Normal 1.002-1.030 [facility] Comment on above: Order Comment: Urine , Random Performed By: #### L 500.3600, L501.0900, L400.2010 #### [facility] [address] [place], [address] UROBILI Normal Normal Normal [facility] Comment on above: Order Comment: Urine , Random Performed By: #### L 500.3600, L501.0900, L400.2010 #### [facility] [address] [place], [address] Urine blood detectionOrdered By: Souleymane Padilla on 05-21-2024 Urine Occult Blood 250 /ul High Negative [facility] Urine clarityOrdered By: Eleno Padilla on 05-21-2024 Clarity (U) Sl. Cloudy Clear [facility] Urine color determinationOrd ered By: Souleymane Padilla on 05-21-2024 Color (U) Yellow Yellow [facility] Urine creatinine measurement (mass/volume)Ordered By: Souleymane Padilla on 05-21-2024 Creatinine (U) [Mass/Vol] 44.40 mg/dL NO RANGE EST. [facility] Urine leukocyte esterase det ection by dipstickOrdered By: Souleymane Padilla on 05-21-2024 Leukocyte esterase Test strip Ql (U) 25 /ul High Negative [facility] Urine pHOrdered By: Marcial Padilla on 05-21-2024 pH (U) 6.5 [pH] 5.0 - 8.0 [facility] Urine specific gravity measu rementOrdered By: Souleymane Padilla on 05-21-2024 Specific gravity (U) [Rel density] 1.010 1.002-1.030 [facility] Urobilinogen Ql (U)Ordered B y: Souleymane Padilla on 05-21-2024 Urine Urobilinogen Normal mg/dl Normal [facility] PT D/C Summary (1)on 024 PT D/C Summary (1) [facility] Physical Therapy [facility] [address] [place] [address] / REHABILITATION SERVICES DISCHARGE SUMMARY MR#: [id number] Acct: [id number] Name: VENUS RINCON Rep #: [id number] : 1965 58 From: Adams Murphy DPT, OCS, CSCS Referring Dr.: Dr. Prosper Trimble MD Status: REG RCR Insurance: [facility] [employer]URANCE Discharge Summary D/C summary: It has been my pleasure to treat VENUS RINCON referred by Dr. Prosper Trimble MD, with the diagnosis of R shoulder pain for a total of 7 visit(s). Discharge Date: 02/20/24 Please see the following information for a summary of their discharge status. Subjective Subjective: Comfortable at rest for a while now. Sleeping OK now. Activities: Normal with modifications. Dressing OK. Doing well and ready to be on own with exercises. Pain r shoulder: Pain Intensity (Out of 10): 4 Overall Improvement % Improvement: 85 Objective Objective/Function: Full aROM R shoulder but slight scap compensation in elevation at end range and pain end flexion, er, ir which is transient. - drop arm, - ext rotation lag, - labral, slight + HK and neer all on R. strength is 4/5 er, ir without pain, 4- empty can with pain, 4- flexion with pain. overall much better abd willing to continue via HEP Goals Goal 1:: Painfree at rest Goal Progress: Goal Met Goal 2:: Full aROM R shoulder without pain Goal Progress: Progressing Goal 3:: Pt feel 80% better in overall pain at 1/10 at worst and manageable Goal Progress: Goal Met Goal 4:: get dressed without irritation to shoulder Goal Progress: Goal Met Goal 5:: quickdash score14 or better Goal Progress: Goal Met Plan Plan: d/c to HEP D/C Information Discharge Comments: To continue via HEP and contact doctor if worsens. d/c sentence: If there are questions or concerns regarding this patient's physical therapy, please feel free to call me at [phone]. Thank you for the referral of this patient. Sincerely, Adams Murphy DPT, DIVYA, CSCS Balance/Gait/Function al tests Balance/Special Test Scores Quick DASH Score: 6.8175 Improvement % Improvement: 85 02/20/24 [id number] CC: Dr. Ellis Alford MD; Dr. Prosper Trimble MD EBG Signed Normal [facility] Inital Evaluation (1) - PTon 01-30-2024 Inital Evaluation (1) - PT [facility] [address] [place] [address] / REHABILITATION SERVICES INITIAL EVALUATION MR#: [id number] Acct: [id number] Name: VENUS RINCON Rep #: [id number] : 1965 58 From: DIVYA Ray DPT, KARYN Referring Dr.: Dr. Prosper Trimble MD Status: REG RCR Insurance: [facility] [employer]F [employer] INSURANCE Patient's Visit Information Visit Information Visit Information: VENUS RINCON is a 58 year old F referred to Physical Therapy by Dr. Prosper Trimble MD with a diagnosis of R shoulder pain. Date of Evaluation: 01/30/24 Physical Therapist: Adams Murphy DPT, DIVYA, KARYN Visit Plan Frequency: 2x /Week Duration: 4-6 Weeks Plan: Appears to be impingement tendonitis subscap and supra. IE: scap cirles, supine stick flexion adn stick er 10x 2x/day and activitiy modification for impingement and posture Please treat with emphasis on activitiy modifcation, grade 1 manual g-h mobs, instruct and progress to HEP pec stretch, and RC and scap strength painfree, US may be use if needed.nonthermal. progress HEP to I Subjective Subjective: Went [place] this summer and seeing Rebaon for injections in hip and knees and started using a walking stick. Thinks this may have bothered her R shoulder. Also had some pain prior but carries grandchild in that R shoulder. It is not completely comfortable at rest. It wakes her up at night when she rolls on it. had x rays and has some OA. Sleep is interrupted at night with rolling at night. 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 Able to do her job but can feel it lifting arm or holding out in front of her. Driving does not hurt. Pushing door closed in passenger seat hurts. No regular exercises for shoulder lately. Basic ADLs are getting done but pain with movement as in taking shirt off. No numbness or tingling during the day. Neck is fine. Pain r shoulder: Pain Intensity (Out of 10): 1 Pain Intensity Range: 1 and 7 Comment: washing back or lifting is worse Objective Objective: Walks and trasnfers I without evidence of Pain. Forward head , protrtacted scap posture is evident. Tender to palpation subscap and supraspinatus tendon on R shoulder. moderately. cervical AROM WFL and without pain or asymmetries today. B shoulder AROM WFL but R hurts at 90 and above worsening to 145. ext rotation 60 R and 75 L with pain on R side, IR to L4 R and painful elbow and wrsit aROM WFL B and no pain. strengvth er and IR 4- on R with pain, flexion and abduction and empty can are painful on R and strength all 4- vs 4 on L. elbow and wrist symmetrical strength at 4 B reflexes 1.3 bi and tri B sensation UE WNL to gross light touch. + HK and neer on R, - sulcus, - scour, - apprehension, - ext rotation lag test. Balance/Special Test Scores Quick DASH Score: 25.0000 Goals Goal 1:: Painfree at rest Goal Time Frame: 2 Weeks Goal 2:: Full aROM R shoulder without pain Goal Time Frame: 4-6 Weeks Goal 3:: Pt feel 80% better in overall pain at 1/10 at worst and manageable Goal Time Frame: 4-6 Weeks Goal 4:: get dressed without irritation to shoulder Goal Time Frame: 4-6 Weeks Goal 5:: quickdash score14 or better Goal Time Frame: 4-6 Weeks Rehabilitation Potential Physical Therapy Diagnosis: pain and weakness R shoulder likely impingement Rehabilitation Potential: Good Anticipated Interventions Patient/Client Instruction: Educate patient on: Condition and Plan of Care For the Purpose of:: To decrease pain, To increase ROM, To improve nutrient delivery to tissue, To improve muscle performance and motor function and To improve ability of physical actions for home/community/work/l eisure Therapeutic Exercise to Include: Strength training, Postural training, Passive ROM, Active ROM and Scapular Strength/Stabilizatio n For the Purpose of:: To decrease pain, To improve nutrient delivery to tissue, To improve muscle performance and motor function and To increase tolerance to activity/condition/po sition Manual Therapy Techniques to Include: Mobilization, Passive ROM and Soft tissue mobilization For the Purpose of:: To decrease pain, To increase ROM and To improve nutrient delivery to tissue Cryotherapy (ice pack, ice massage): Yes Ultrasound (thermal/non thermal): Yes (nonthemrmal) For the Purpose of:: To decrease pain and To decrease swelling/inflammation Text: Thank you for the opportunity to evaluate your patient. For Medicare and Medicare HMO plans, please review the plan of care and approve it. It will need to be FAXED BACK to us at [phone] for Medicare purposes. For Medicare only, by signing this I certify the plan of care. Please let me know if there are questions or concerns regarding this plan of care. Physician Signature: (more content not included)... Normal [facility] Basophil percentageOrdered B y: Shelianaeem Tolentino on 05-14-2023 Basophil percentage 4.0 mg/dL 2.5-4.9 [facility] Chloride [Moles/Vol] 107 mmol[facility]L 98-[facility] Glucose [Mass/Vol] 112 mg/dL 74-106 [facility] Comment on above: Fasting Glucose resu lt from 100 to 125 mg/dL suggests IMPAIRED HOMEOSTASIS per A.D.A. criteria. Potassium [Moles/Vol] 4.5 mmol/L 3.5-5.1 [facility] Sodium [Moles/Vol] 143 mmol/L 136-145 [facility] WBC (Bld) [#/Vol] 8.3 10*3/uL 4.4-11.0 [facility] Blood erythrocytes count (nu mber/volume)Ordered By: Shelia Tolentino on 05-14-2023 RBC (Bld) [#/Vol] 4.47 10*6/uL 4.2-5.4 [facility] Blood hemoglobin measurement (mass/volume)Ordered By: Shelia Tolentino on 05-14-2023 Hemoglobin (Bld) [Mass/Vol] 12.7 g/dL 12.0-15.0 [facility] Blood platelet mean volumeOr dered By: Shelia Tolentino on 05-14-2023 Platelet mean volume (Bld) [Entitic vol] 9.9 fL 6.2-12.0 [facility] Determination of erythrocyte mean corpuscular volume (MCV)Ordered By: Shelia Tolentino on 05-14-2023 MCV (RBC) [Entitic vol] 92.4 fL 81-99 [facility] Hematocrit Auto (Bld) [Volum e fraction]Ordered By: Shelia Tolentino on 05-14-2023 Hematocrit (Bld) [Volume fraction] 41.3 % 37-47 [facility] - Chemistry and C hemistry - challengeOrdered By: Shelia Tolentino on 05-14-2023 CO2 [Moles/Vol] 30.0 mmol/L 21.0-32.0 [facility] Urea nitrogen/Creatinine [Mass ratio] 22.0 mg/mg 10-20 [facility] - Hematology and Cell countsOrdered By: Shelia Tolentino on 05-14-2023 Erythrocyte distribution width (RBC) [Entitic vol] 46.8 fL 35.1-43.9 [facility] Erythrocyte distribution width (RBC) [Ratio] 13.7 % 11.6-14.6 [facility] MCH (RBC) [Entitic mass] 28.4 pg 27.0-32.0 [facility] MCHC Auto (RBC) [Mass/Vol]Or dered By: Shelia Tolentino on 05-14-2023 MCHC (RBC) [Mass/Vol] 30.8 g/dL 32-36 [facility] No Panel InformationOrdered By: Shelia Tolentino on 05-14-2023 Estimated GFR (MDRD) Amer 67 mL/min >60 [facility] Comment on above: GFR Calc Estimated GFR (MDRD) Non-Af Amer 55 mL/min >60 [facility] Comment on above: Non- GFR Calc Parathyroid Hormone (Intact) 15.0 pg/mL 18.4-80.1 [facility] Vitamin D 25-Hydroxy 50.0 ng/mL [facility] Comment on above: Vitamin D 25(OH) Sta tus Range Deficiency <20 ng/mL (50nmol/L) Insufficiency 20 - 30 ng/mL (50 - 75 nmol/L) Sufficiency 30 - 100 ng/mL (75 - 250 nmol/L) Toxicity >100 ng/mL (>250 nmol/L) Platelets bldOrdered By: Adarsh Tolentino on 05-14-2023 Platelets (Bld) [#/Vol] 363 10*3/uL 150-450 [facility] Serum or plasma albumin chaz urement (mass/volume)Ordered By: Shelia Tolentino on 05-14-2023 Albumin [Mass/Vol] 3.6 g/dL 3.2-5.0 [facility] Serum or plasma calcium chaz urement (mass/volume)Ordered By: Shelia Tolentino on 05-14-2023 Calcium [Mass/Vol] 9.8 mg/dL 8.5-10.1 [facility] Serum or plasma creatinine m easurement (mass/volume)Ordered By: Shelia Tolentino on 05-14-2023 Creatinine [Mass/Vol] 1.09 mg/dL 0.55-1.02 [facility] Comment on above: The validity of the calculated GFR & GFRAA in patients over 70 years has not been determined. Clinical correlation is essential. Serum or plasma urea nitroge n measurement (mass/volume)Ordered By: Shelia Tolentino on 05-14-2023 Urea nitrogen [Mass/Vol] 24 mg/dL 7-18 [facility] Urine creatinine measurement (mass/volume)Ordered By: Shelia Tolentino on 05-14-2023 Creatinine (U) [Mass/Vol] 89.80 mg/dL NO RANGE EST. [facility] Urine protein measurement (m ass/volume)Ordered By: Shelia Tolentino on 05-14-2023 Protein (U) [Mass/Vol] mg/dL 0.0-11.8 [facility] Urine protein/creatinine mas s ratioOrdered By: Shelia Tolentino on 05-14-2023 Protein/Creatinine (U) [Mass ratio] TNP [facility] Comment on above: Test not performed Chocolate RASTOrdered By: Davin Santos on 03-06-2023 Chocolate IgE Qn (S) <0.10 kU/L Class 0 [facility] - Miscellaneous t estsOrdered By: Shiela Santos on 03-06-2023 Service comment (Unsp spec) [Interp] Comment . [facility] Comment on above: Levels of Specific I gE Class Description of Class ----- < 0.10 0 Negative 0.10 - 0.31 0/I Equivocal/Low 0.32 - 0.55 I Low 0.56 - 1.40 II Moderate 1.41 - 3.90 III High 3.91 - 19.00 IV Very High 19.01 - 100.00 V Very High >100.00 Very High No Panel InformationOrdered By: Shiela Santos on 03-06-2023 Mussel Allergen IgE Antibody <0.10 kU/L Class 0 [facility] Shrimp Allergen <0.10 kU/L Class 0 [facility] Serum beef IgE antibody assa y (units/volume)Ordered By: Shiela Santos on 03-06-2023 Beef IgE Qn (S) <0.10 kU/L Class 0 [facility] Serum codfish IgE antibody a ssay (units/volume)Ordered By: Shiela Santos on 03-06-2023 Codfish IgE Qn (S) <0.10 kU/L Class 0 [facility] Serum corn IgE antibody assa y (units/volume)Ordered By: Shiela Santos on 03-06-2023 [place] IgE Qn (S) <0.10 kU/L Class 0 [facility] Serum cow milk IgE antibody assay (units/volume)Ordered By: Shiela Santos on 03-06-2023 Cow milk IgE Qn (S) <0.10 kU/L Class 0 [facility] Serum peanut IgE antibody as say (units/volume)Ordered By: Shiela Santos on 03-06-2023 Peanut IgE Qn (S) <0.10 kU/L Class 0 [facility] Serum pork IgE antibody assa y (units/volume)Ordered By: Shiela Santos on 03-06-2023 Pork IgE Qn (S) <0.10 kU/L Class 0 [facility] Serum salmon IgE antibody as say (units/volume)Ordered By: Shiela Santos on 03-06-2023 [place] IgE Qn (S) <0.10 kU/L Class 0 [facility] Serum soybean IgE antibody a ssay (units/volume)Ordered By: Shiela Santos on 03-06-2023 Soybean IgE Qn (S) <0.10 kU/L Class 0 [facility] Serum tuna IgE antibody assa y (units/volume)Ordered By: Shiela Santos on 03-06-2023 Tuna IgE Qn (S) <0.10 kU/L Class 0 [facility] Serum wheat IgE antibody ass ay (units/volume)Ordered By: Shiela Santos on 03-06-2023 Wheat IgE Qn (S) <0.10 kU/L Class 0 [facility] Serum whole egg IgE antibody assay (units/volume)Ordered By: Shiela Santos on 03-06-2023 Whole Egg IgE Qn (S) <0.10 kU/L Class 0 [facility] Comment on above: Performed at: [address] [id number] Director: Daxa Renee MD, Phone: [phone] Cervical or vagninal specime n microscopic examination by cytology stain (reported asOrdered By: Dr. Torres on 06-29-2022 Cytology report Cyto stain Doc (Cvx/Vag) Comment . [facility] Comment on above: The Pap smear is a s creening test designed to aid in thedetection of premalignant and malignant conditions of theuterine cervix. It is not a diagnostic procedure andshould not be used as the sole means of detecting cervicalcancer. Both false-positive and false-negative reports dooccur. Detection in cervical specim en of any of human papilloma virus (HPV) 16, 18, 31, 33,Ordered By: Dr. Torres on 06-29-2022 HPV 16+18+31+33+35+39+45+51+ 52+56+58+59+66+68 DNA Probe+sig amp Ql (Cvx) Negative Negative [facility] Comment on above: This nucleic acid am plification test detects fourteen high-risk HPV types (16,18,31,33,35,39,45,51,52,56,58,59,66,68)without differentiation. Laboratory - CytologyOrdered By: Dr. Torres on 06-29-2022 Loan Analyst Cyto stain Nom (Cvx/Vag) [ID] Comment . [facility] Comment on above: Bill Chase totechnologist (ASCP) Laboratory - Miscellaneous t estsOrdered By: Dr. Torres on 06-29-2022 Service comment (Unsp spec) [Interp] Comment . [facility] Comment on above: This liquid based Th inPrep(R) pap test was screened withthe use of an image guided system. Service comment (Unsp spec) [Interp] . . [facility] Liquid-based cerv Pap + CT/G C by DAT w reflex to high-risk HPV for ASCUSOrdered By: Dr. Torres on 06-29-2022 Cytology report Cyto stain.thin prep Doc (Cvx/Vag) Comment . [facility] Comment on above: Criteria not met, HP V Genotype not performed.Performed at: [facility] - [address] [id number] Director: Manuela Turner MD, Phone: [phone] at: [facility] [id number] [place], [place] [id number] Director: Peter Mcadams MD, Phone: [phone] at: =G - [facility] [id number] [place], [place] [id number] Director: Manuela Turner MD, Phone: [phone] No Panel InformationOrdered By: Dr. Torres on 06-29-2022 Pathology report final diagnosis Narrative Comment . [facility] Comment on above: NEGATIVE FOR INTRAEP ITHELIAL LESION OR MALIGNANCY.THIS SPECIMEN WAS RESCREENED PART OF OUR CYLINDRICAL MIXER PROGRAM. Basophil percentageOrdered B y: Dr. Padilla on 05-23-2022 Chloride [Moles/Vol] 103 mmol/L 98-107 [facility] Glucose [Mass/Vol] 93 mg/dL 74-106 [facility] Potassium [Moles/Vol] 4.5 mmol/L 3.5-5.1 [facility] Sodium [Moles/Vol] 139 mmol/L 136-145 [facility] Laboratory - Chemistry and C hemistry - challengeOrdered By: Dr. Padilla on 05-23-2022 CO2 [Moles/Vol] 31.0 mmol/L 21.0-32.0 [facility] Urea nitrogen/Creatinine [Mass ratio] 13.8 mg/mg 10-20 [facility] No Panel InformationOrdered By: Dr. Padilla on 05-23-2022 Estimated GFR (MDRD) Amer 67 mL/min >60 [facility] Comment on above: GFR Calc Estimated GFR (MDRD) Non-Af Amer 55 mL/min >60 [facility] Comment on above: Non- GFR Calc Serum or plasma calcium chaz urement (mass/volume)Ordered By: Dr. Padilla on 05-23-2022 Calcium [Mass/Vol] 9.3 mg/dL 8.5-10.1 [facility] Serum or plasma creatinine m easurement (mass/volume)Ordered By: Dr. Padilla on 05-23-2022 Creatinine [Mass/Vol] 1.09 mg/dL 0.55-1.02 [facility] Comment on above: The validity of the calculated GFR & GFRAA in patients over 70 years has not been determined. Clinical correlation is essential. Serum or plasma urea nitroge n measurement (mass/volume)Ordered By: Dr. Padilla on 05-23-2022 Urea nitrogen [Mass/Vol] 15 mg/dL 7-18 [facility] Thin prep Papanicolaou smear with manual screeningOrdered By: Dr. Padilla on 05-23-2022 Thin prep Papanicolaou smear with manual screening 5 5-15 [facility] Urine creatinine measurement (mass/volume)Ordered By: Dr. Padilla on 05-23-2022 Creatinine (U) [Mass/Vol] 38.20 mg/dL NO RANGE EST. [facility] Urine protein measurement (m ass/volume)Ordered By: Dr. Padilla on 05-23-2022 Protein (U) [Mass/Vol] mg/dL 0.0-11.8 [facility] Urine protein/creatinine mas s ratioOrdered By: Dr. Padilla on 05-23-2022 Protein/Creatinine (U) [Mass ratio] 149 mg/g CRE 0-200 [facility] .Auto Diffon 08-30-2018 Ammonia mass conc (P) 0.50 10 3/mcL Normal 0.15-1.00 [facility] ([place]) Comment on above: Performed By: #### A DIFF, CBC, ANEU #### [place] [address] #### BMP, GFR, TROP #### [address] [address] Basophils #/vol (Bld) 0.10 10 3/mcL Normal 0.00-0.19 [facility] ([place]) Comment on above: Performed By: #### A DIFF, CBC, ANEU #### [place] [address] #### BMP, GFR, TROP #### [address] [address] Basophils/100 WBC (Bld) 2.3 % Normal 0.0-2.5 [facility] ([place]) Comment on above: Performed By: #### A DIFF, CBC, ANEU #### [place] [address] #### BMP, GFR, TROP #### [address] [address] Eosinophils #/vol (Bld) 0.30 10 3/mcL Normal 0.00-0.40 [facility] ([place]) Comment on above: Performed By: #### A DIFF, CBC, ANEU #### [address] [address] #### BMP, GFR, TROP #### [address] [address] Eosinophils/100 WBC (Bld) 4.9 % Normal 0.0-7.0 [facility] [facility] [place] Comment on above: Performed By: #### A DIFF, CBC, ANEU #### [address] [address] #### BMP, GFR, TROP #### [address] [address] Lymphocytes #/vol (Bld) 2.70 10 3/mcL Normal 0.77-3.85 [facility] ([place]) Comment on above: Performed By: #### A DIFF, CBC, ANEU #### [place] [address] #### BMP, GFR, TROP #### [address] [address] Lymphocytes/100 WBC (Bld) 48.8 % Normal 10.0-50.0 [facility] ([place]) Comment on above: Performed By: #### A DIFF, CBC, ANEU #### [address] [address] #### BMP, GFR, TROP #### [address] [address] Monocytes/100 WBC (Bld) 8.4 % Normal 1.7-13.0 A [facility] ([place]) Comment on above: Performed By: #### A DIFF, CBC, ANEU #### [address] [address] #### BMP, GFR, TROP #### [address] [address] Neutrophils/100 WBC (Bld) 35.6 % Low 37.0-80.0 [facility] ([place] Comment on above: Performed By: #### A DIFF, CBC, ANEU #### [address] [address] #### BMP, GFR, TROP #### [address] [address] .NEUABSon 08-30-2018 Neutrophils #/vol (Bld) 2.00 10 3/mcL Low 2.85-6.16 [facility] ([place] Comment on above: Performed By: #### A DIFF, CBC, ANEU #### [place] [address] #### BMP, GFR, TROP #### [address] [address] CBCon 08-30-2018 Erythrocyte distribution width Ratio (RBC) 14.3 % Normal 11.5-14.5 [facility] ([place]) Comment on above: Performed By: #### A DIFF, CBC, ANEU #### [place] [address] #### BMP, GFR, TROP #### [place] [address] Hematocrit Volume Fraction (Bld) 39.4 % Normal 37.0-47.0 [facility] ([place] Comment on above: Performed By: #### A DIFF, CBC, ANEU #### [place] [address] #### BMP, GFR, TROP #### [place] [address] Hemoglobin mass conc (Bld) 13.0 G/dL Normal 12.0-16.0 [facility] ([place] Comment on above: Performed By: #### A DIFF, CBC, ANEU #### [place] [address] #### BMP, GFR, TROP #### [place] [address] MCH Entitic mass (RBC) 29.2 pg Normal 27.0-31.2 [facility] ([place]) Comment on above: Performed By: #### A DIFF, CBC, ANEU #### [place] [id number] #### BMP, GFR, TROP #### [address] [address] MCHC mass conc (RBC) 33.1 G/dL Normal 33.0-37.0 [facility] ([place]) Comment on above: Performed By: #### A DIFF, CBC, ANEU #### [address] [address] #### BMP, GFR, TROP #### [address] [address] MCV Entitic volume (RBC) 88.2 fL Normal 80.0-94.0 [facility] ([place]) Comment on above: Performed By: #### A DIFF, CBC, ANEU #### [place] [address] #### BMP, GFR, TROP #### [address] [address] Platelet mean volume Entitic volume (Bld) 9.0 fL Normal 7.4-10.4 [facility] ([place]) Comment on above: Performed By: #### A DIFF, CBC, ANEU #### [place] [address] #### BMP, GFR, TROP #### [address] [address] Platelets #/vol (Bld) 278 10 3/mcL Normal 130-400 A [facility] ([place]) Comment on above: Performed By: #### A DIFF, CBC, ANEU #### [place] [id number] #### BMP, GFR, TROP #### [address] [address] RBC #/vol (Bld) 4.47 10 6/mcL Normal 4.20-5.40 [facility] ([place]) Comment on above: Performed By: #### A DIFF, CBC, ANEU #### [address] [address] #### BMP, GFR, TROP #### [place] [id number] WBC #/vol (Bld) 5.60 10 3/mcL Normal 4.60-10.80 [facility] ([place] Comment on above: Performed By: #### A DIFF, CBC, ANEU #### [place] [address] #### BMP, GFR, TROP #### [place] [address] TROPon 08-30-2018 Troponin I.cardiac mass conc ng/mL Normal 0.000-0.040 [facility] ([place]) Comment on above: Result Comment: Trop onin I reference range: 0.00-0.040 ng/mL Negative and non-diagnostic. >0.040 ng/mL Consistent with cardiac damage, increased clinical risk and possibility of myocardial infarction. Serial measurements, a rise & fall in test results, clinical history, appropriate symptoms and/or ECG changes may help assess possibility of HI. *Other non-acute coronary syndrome conditions such as CHF, myocarditis, pulmonary emboli, sepsis and cardiac surgery could result in myocardial damage and increased troponin levels. Performed By: #### A DIFF, CBC, ANEU #### [address] [address] #### BMP, GFR, TROP #### [place] [address] Troponin I.cardiac mass conc ng/mL Normal 0.000-0.040 [facility] ([place] Comment on above: Result Comment: Trop onin I reference range: 0.00-0.040 ng/mL Negative and non-diagnostic. >0.040 ng/mL Consistent with cardiac damage, increased clinical risk and possibility of myocardial infarction. Serial measurements, a rise & fall in test results, clinical history, appropriate symptoms and/or ECG changes may help assess possibility of HI. *Other non-acute coronary syndrome conditions such as CHF, myocarditis, pulmonary emboli, sepsis and cardiac surgery could result in myocardial damage and increased troponin levels. Performed By: #### T ROP #### [place] [address] .Auto Diffon 08-29-2018 Ammonia mass conc (P) 0.50 10 3/mcL Normal 0.15-1.00 [facility] ([place] Comment on above: Performed By: #### A DIFF, CBC, ANEU #### [place] [address] #### BMP, GFR, TROP #### [address] [address] Basophils #/vol (Bld) 0.10 10 3/mcL Normal 0.00-0.19 [facility] ([place] Comment on above: Performed By: #### A DIFF, CBC, ANEU #### [place] [address] #### BMP, GFR, TROP #### [address] [address] Basophils/100 WBC (Bld) 1.4 % Normal 0.0-2.5 A [facility] ([place] Comment on above: Performed By: #### A DIFF, CBC, ANEU #### [place] [address] #### BMP, GFR, TROP #### [address] [address] Eosinophils #/vol (Bld) 0.30 10 3/mcL Normal 0.00-0.40 [facility] ([place] Comment on above: Performed By: #### A DIFF, CBC, ANEU #### [place] [address] #### BMP, GFR, TROP #### [address] [address] Eosinophils/100 WBC (Bld) 3.7 % Normal 0.0-7.0 [facility] ([place] Comment on above: Performed By: #### A DIFF, CBC, ANEU #### [place] [address] #### BMP, GFR, TROP #### [address] [address] Lymphocytes #/vol (Bld) 3.80 10 3/mcL Normal 0.77-3.85 [facility] ([place] Comment on above: Performed By: #### A DIFF, CBC, ANEU #### [address] [address] #### BMP, GFR, TROP #### [address] [address] Lymphocytes/100 WBC (Bld) 44.4 % Normal 10.0-50.0 [facility] ([place]) Comment on above: Performed By: #### A DIFF, CBC, ANEU #### [address] [address] #### BMP, GFR, TROP #### [address] [address] Monocytes/100 WBC (Bld) 6.1 % Normal 1.7-13.0 A [facility] ([place]) Comment on above: Performed By: #### A DIFF, CBC, ANEU #### [address] [address] #### BMP, GFR, TROP #### [address] [address] Neutrophils/100 WBC (Bld) 44.4 % Normal 37.0-80.0 [facility] ([place]) Comment on above: Performed By: #### A DIFF, CBC, ANEU #### [address] [address] #### BMP, GFR, TROP #### [address] [address] .GFRon 08-29-2018 GFR Non- 55 ml/min/1.73sqm Normal [facility] ([place]) Comment on above: Result Comment: GFR Population mean for , Non- Americans Ages 20-29 = 116 mL/min/1.73 sq.m. Ages 30-39 = 107 mL/min/1.73 sq.m. Ages 40-49 = 99 mL/min/1.73 sq.m. Ages 50-59 = 93 mL/min/1.73 sq.m. Ages 60-69 = 85 mL/min/1.73 sq.m. Ages 70+ = 75 mL/min/1.73 sq.m. Chronic Kidney Disease: Less than 60 mL/min/1.73 square meters End Stage Renal Disease: Less than 15 mL/min/1.73 square meters Performed By: #### A DIFF, CBC, ANEU #### [address] [address] #### BMP, GFR, TROP #### [place] [address] GFR 67 ml/min/1.73sqm Normal [facility] ([place] Comment on above: Result Comment: GFR Population mean for , Non- Americans Ages 20-29 = 116 mL/min/1.73 sq.m. Ages 30-39 = 107 mL/min/1.73 sq.m. Ages 40-49 = 99 mL/min/1.73 sq.m. Ages 50-59 = 93 mL/min/1.73 sq.m. Ages 60-69 = 85 mL/min/1.73 sq.m. Ages 70+ = 75 mL/min/1.73 sq.m. Chronic Kidney Disease: Less than 60 mL/min/1.73 square meters End Stage Renal Disease: Less than 15 mL/min/1.73 square meters Performed By: #### A DIFF, CBC, ANEU #### [place] [address] #### BMP, GFR, TROP #### [place] [address] .NEUABSon 08-29-2018 Neutrophils #/vol (Bld) 3.80 10 3/mcL Normal 2.85-6.16 [facility] ([place] Comment [place] above: Performed By: #### A DIFF, CBC, ANEU #### [place] [address] #### BMP, GFR, TROP #### [place] [address] .Urinalysis Microscopic (AO) on 08-29-2018 RBC #/vol (U) 0-5 None Seen [facility] ([place] Comment [place] above: Performed By: #### U A, UAMICAO #### [place] [address] UA Squam Epithelial 0-5 None Seen [facility] ([place]) Comment on above: Performed By: #### U A, UAMICAO #### [place] [address] UA WBC None Seen Normal None Seen [facility] ([place] Comment on above: Performed By: #### U A, UAMICAO #### [place] [address] UA Yeast 1+ /hpf [facility] ([place] Comment [place] above: Performed By: #### U A, UAMICAO #### [place] [address] BMPon 08-29-2018 Calcium mass conc 9.0 mg/dL Normal 8.4-10.2 [facility] ([place] Comment on above: Performed By: #### A DIFF, CBC, ANEU #### [place] [address] #### BMP, GFR, TROP #### [place] [address] Chloride molar conc 102 mmol/L Normal 98-107 [facility] ([place] Comment on above: Performed By: #### A DIFF, CBC, ANEU #### [place] [address] #### BMP, GFR, TROP #### [place] [address] CO2 molar conc 26 mmol/L Normal 22-29 [facility] ([place] Comment on above: Performed By: #### A DIFF, CBC, ANEU #### [address] [address] #### BMP, GFR, TROP #### [place] [address] Creatinine mass conc 1.05 mg/dL High 0.55-1.02 [facility] ([place]) Comment on above: Performed By: #### A DIFF, CBC, ANEU #### [place] [address] #### BMP, GFR, TROP #### [address] [address] Electrolyte Balance 12.0 mEq/L Normal [facility] ([place] Comment on above: Performed By: #### A DIFF, CBC, ANEU #### [address] [address] #### BMP, GFR, TROP #### [address] [address] Glucose mass conc 87 mg/dL Normal 70-105 [facility] ([place] Comment on above: Performed By: #### A DIFF, CBC, ANEU #### [address] [address] #### BMP, GFR, TROP #### [address] [address] Potassium molar conc 3.9 mmol/L Normal 3.5-5.1 [facility] ([place]) Comment on above: Performed By: #### A DIFF, CBC, ANEU #### [address] [address] #### BMP, GFR, TROP #### [address] [address] Sodium molar conc 140 mmol/L Normal 136-145 [facility] ([place] Comment on above: Performed By: #### A DIFF, CBC, ANEU #### [address] [address] #### BMP, GFR, TROP #### [address] [address] Urea nitrogen mass conc 17 mg/dL Normal 7-18 A [facility] ([place]) Comment on above: Performed By: #### A DIFF, CBC, ANEU #### [address] [address] #### BMP, GFR, TROP #### [address] [address] Urea nitrogen/Creatinine mass ratio 16 ratio Normal 7-27 [facility] ([place] Comment on above: Performed By: #### A DIFF, CBC, ANEU #### [address] [address] #### BMP, GFR, TROP #### [address] [address] CBCon 08-29-2018 Erythrocyte distribution width Ratio (RBC) 14.3 % Normal 11.5-14.5 [facility] ([place] Comment on above: Performed By: #### A DIFF, CBC, ANEU #### [place] [address] #### BMP, GFR, TROP #### [place] [address] Hematocrit Volume Fraction (Bld) 42.7 % Normal 37.0-47.0 [facility] ([place]) Comment on above: Performed By: #### A DIFF, CBC, ANEU #### [place] [address] #### BMP, GFR, TROP #### [place] [address] Hemoglobin mass conc (Bld) 14.1 G/dL Normal 12.0-16.0 [facility] ([place]) Comment on above: Performed By: #### A DIFF, CBC, ANEU #### [place] [address] #### BMP, GFR, TROP #### [place] [address] MCH Entitic mass (RBC) 29.5 pg Normal 27.0-31.2 [facility] ([place]) Comment on above: Performed By: #### A DIFF, CBC, ANEU #### [place] [address] #### BMP, GFR, TROP #### [address] [address] MCHC mass conc (RBC) 33.1 G/dL Normal 33.0-37.0 [facility] ([place]) Comment on above: Performed By: #### A DIFF, CBC, ANEU #### [place] [address] #### BMP, GFR, TROP #### [place] [address] MCV Entitic volume (RBC) 89.0 fL Normal 80.0-94.0 [facility] ([place] Comment on above: Performed By: #### A DIFF, CBC, ANEU #### [place] [address] #### BMP, GFR, TROP #### [place] [address] Platelet mean volume Entitic volume (Bld) 8.3 fL Normal 7.4-10.4 [facility] ([place] Comment on above: Performed By: #### A DIFF, CBC, ANEU #### [place] [address] #### BMP, GFR, TROP #### [place] [address] Platelets #/vol (Bld) 331 10 3/mcL Normal 130-400 A [facility] ([place] Comment on above: Performed By: #### A DIFF, CBC, ANEU #### [place] [address] #### BMP, GFR, TROP #### [place] [address] RBC #/vol (Bld) 4.80 10 6/mcL Normal 4.20-5.40 [facility] ([place] Comment on above: Performed By: #### A DIFF, CBC, ANEU #### [place] [address] #### BMP, GFR, TROP #### [place] [address] WBC #/vol (Bld) 8.50 10 3/mcL Normal 4.60-10.80 [facility] ([place] Comment on above: Performed By: #### A DIFF, CBC, ANEU #### [place] [address] #### BMP, GFR, TROP #### [place] [address] TROPon 08-29-2018 Troponin I.cardiac mass conc ng/mL Normal 0.000-0.040 [facility] ([place] Comment on above: Result Comment: Trop onin I reference range: 0.00-0.040 ng/mL Negative and non-diagnostic. >0.040 ng/mL Consistent with cardiac damage, increased clinical risk and possibility of myocardial infarction. Serial measurements, a rise & fall in test results, clinical history, appropriate symptoms and/or ECG changes may help assess possibility of HI. *Other non-acute coronary syndrome conditions such as CHF, myocarditis, pulmonary emboli, sepsis and cardiac surgery could result in myocardial damage and increased troponin levels. Performed By: #### A DIFF, CBC, ANEU #### [address] [address] #### BMP, GFR, TROP #### [place] [address] UAon 08-29-2018 Color Nom (U) Yellow Normal [facility] ([place] Comment [place] above: Performed By: #### U A, UAMICAO #### [place] [address] Glucose mass conc (U) Negative Normal Negative [facility] ([place] Comment on above: Performed By: #### U A, UAMICAO #### [place] [address] Ketones Ql (U) 15 mg/dL Negative [facility] ([place] Comment on above: Performed By: #### U A, UAMICAO #### [place] [address] UA Appear Clear Normal Clear [facility] ([place] Comment on above: Performed By: #### U A, UAMICAO #### [place] [id number] UA Blood Moderate Negative [facility] ([place] Comment on above: Performed By: #### U A, UAMICAO #### [place] [address] UA Leuk Est Negative Normal Negative [facility] ([place] Comment on above: Performed By: #### U A, UAMICAO #### [place] [address] UA Nitrite Negative Normal Negative [facility] ([place] Comment on above: Performed By: #### U A, UAMICAO #### [place] [address] UA pH 6.0 Normal 5.0 - 8.0 [facility] ([place] Comment on above: Performed By: #### U A, UAMICAO #### [place] [address] UA Protein Negative Normal Negative [facility] ([place] Comment on above: Performed By: #### U A, UAMICAO #### [place] [address] UA Spec Grav 1.010 1.015-1.025 [facility] ([place] Comment on above: Performed By: #### U A, UAMICAO #### [place] [address] UA Specimen Type Clean Catch Normal [facility] ([place] Comment on above: Performed By: #### U A, UAMICAO #### [place] [address] UA Urobilinogen 0.2 E.U./dL Normal 0.2-1.0 [facility] [place] Comment on above: Performed By: #### U A, UAMICAO #### [place] [address] Urobilinogen Qn (U) Negative Normal Negative [facility] ([place] Comment on above: Performed By: #### U A, UAMICAO #### [place] [address] XR CHEST 2 VIEWSon 9 XR CHEST 2 VIEWS ORIGINAL XR CHEST 2 VIEWS CLINICAL STATEMENT: CHEST PAIN COMPARISON: NONE FINDINGS: The cardiomediastinal contours are normal. No airspace disease. There is no consolidation, vascular congestion, pleural effusion, or pneumothorax. No displaced fractures are identified. There is an S shaped curvature of the thoracolumbar spine. IMPRESSION: No visible acute process. I have personally reviewed the images of this examination and agree with the resident's findings and interpretation. Interpreted By: Tomas Treviño MD Preliminary Report By: Rosy Painter DO Electronically Signed By: Tomas Treviño MD Dictated Date: 08/29/2018 5:48:47 PM Prelim Date: 08/29/2018 5:53:18 PM Sign Date: 08/29/2018 6:20:25 PM Normal [facility] ([place] Vital Signs Date Time Vital Sign Value Performing Clinician Facility 08-13-2024 14:56-0400 Body height 165.1 cm Nemo Plotts DELIVERY TECH.CNM Work Phone: [facility] 08-13-2024 14:56-0400 Body mass index (BMI) [Ratio] 29.29 kg/m2 Nemo Plotts DELIVERY TECH.CNM Work Phone: [facility] 08-13-2024 14:56-0400 Body weight 79.83 kg Nemo Plotts DELIVERY TECH.CNM Work Phone: [facility] 08-13-2024 14:56-0400 Diastolic blood pressure 72 mm[Hg] Nemo Plotts DELIVERY TECH.CNM Work Phone: [facility] 08-13-2024 14:56-0400 Systolic blood pressure 120 mm[Hg] Nemo Plotts DELIVERY TECH.CNM Work Phone: [facility] 06-08-2024 11:27-0500 Body height 162.56 cm Chase Alvarado MD [facility] 06-08-2024 11:27-0500 Body mass index (BMI) [Ratio] 30.55 kg/m2 Chase Alvarado MD [facility] 06-08-2024 11:27-0500 Body weight 80.74 kg Chase Alvarado MD [facility] 08-14-2023 13:57-0400 Body height 163.2 cm Nemo Plotts DELIVERY TECH.CNM Work Phone: [facility] 08-14-2023 13:57-0400 Body weight 79.56 kg Nemo Plotts DELIVERY TECH.CNM Work Phone: [facility] 08-14-2023 13:57-0400 Diastolic blood pressure 70 mm[Hg] Nemo Lambert DELIVERY TECH.CNM Work Phone: [facility] 08-14-2023 13:57-0400 Systolic blood pressure 100 mm[Hg] Nemo Lambert DELIVERY TECH.CNM Work Phone: [facility] Encounters Encounter Date Encounter Type Care Provider Facility Start: 03-09-2025 End: 03-09-2025 Encounter identifier Sammy Mauricio Work Phone: [facility] Start: 03-09-2025 ambulatory Sammy Mauricio [facility] Start: 01-22-2025 End: 01-22-2025 ambulatory Ellis Alford MD Work Phone: -Physical Therapy Start: 01-22-2025 End: 01-22-[address] Santiago Morgan MD -Physical Therapy Work Phone: Start: 12-09-2024 End: 12-09-2024 Postop follow up visit related to original px Sammy Mauricio PA-C [facility] Start: 12-09-2024 End: 12-09-2024 Encounter identifier Sammy Mauricio Work Phone: [facility] Start: 12-09-2024 ambulatory Sammy Mauricio [facility] Start: 11-23-2024 ambulatory Sammy [facility] Start: 11-12-2024 ambulatory Santiago V Cathy Jr [facility] Start: 11-02-2024 ambulatory Sammy Mauricio [facility] Start: 10-30-2024 ambulatory Santiago V Cathy Jr [facility] Start: 10-29-2024 End: 10-29-2024 Encounter identifier Chucky More Work Phone: [facility] [place] Start: 10-29-2024 ambulatory [facility] Start: 10-28-2024 End: 10-28-2024 Encounter identifier Sammy Mauricio Work Phone: [place] Start: 10-28-2024 ambulatory [facility]a [facility] Start: 10-21-2024 ambulatory Santiago [facility] Start: 10-13-2024 End: 10-13-2024 Encounter identifier Santiago Morgan Jr Work Phone: [facility] Start: 10-13-2024 ambulatory Micha Santos [facility] Start: 10-09-2024 End: 10-09-2024 Encounter identifier Santiago Morgan Jr Work Phone: [facility] Start: 10-09-2024 End: 10-09-2024 Encounter for other preprocedural examination Martin Isidro Work Phone: [facility] Start: 10-09-2024 End: 10-09-2024 Encounter for preprocedural cardiovascular examination Martin Isidro Work Phone: [facility] Start: 10-09-2024 End: 10-09-2024 Office outpatient new 45 minutes Martin Isidro Work Phone: [facility] Start: 10-09-2024 ambulatory [facility] Start: 10-08-[address] [facility] Start: 09-02-2024 End: 09-02-2024 ambulatory Ellis Alford MD Work Phone: [facility] Work Phone: Start: 09-02-2024 End: 09-02-2024 Patient encounter procedure Nemo Lambert [facility] Work Phone: Start: 09-02-2024 End: 09-02-2024 ambulatory Ellis Alford Facility:[facility] Start: 08-28-2024 ambulatory Santiago Jon [facility] Start: 08-26-2024 ambulatory Santiago Jon [facility] Start: 08-25-2024 End: 10-25-2024 Follow-up encounter Amie Doshi APRN.CNP Work Phone: OB/Gynecology Start: 08-13-2024 End: 08-13-2024 ambulatory NEMO LAMBERT Facility:[facility] Start: 08-13-2024 Encounter for gynecological examination (general) (routine) without abnormal findings NEMO LAMBERT [facility] Start: 08-13-2024 End: 08-13-2024 Patient encounter procedure Nemo Lambert DELIVERY TECH.CNM Work Phone: OB/Gynecology Comment on above: Encounter for gyneco logical examination (general) (routine) without abnormal findings (Primary Dx); Encounter for screening mammogram for breast cancer; Dense breast tissue; Screening for cervical cancer; Screening for human papillomavirus (HPV) Start: 08-13-2024 End: 08-13-2024 Patient encounter status Nemo Lambert DELIVERY TECH.CNM Work Phone: [facility] Start: 07-29-2024 ambulatory Santiago [facility] Start: 06-08-2024 End: 06-08-2024 Office outpatient visit 25 minutes Chase Alvarado Work Phone: [facility] Start: 06-08-2024 ambulatory Chase LEE [facility] Start: 05-21-2024 End: 05-21-[address] Souleymane Padilla MD -Laboratory, [place] Work Phone: Start: 05-21-2024 End: 05-21-2024 ambulatory Ellis Alford Facility:[facility] Start: 05-13-2024 End: 05-13-2024 Office outpatient new 60 minutes Santiago Morgan Jr Work Phone: [facility] Start: 05-13-2024 ambulatory Santiago [facility] Start: 02-20-2024 End: 02-20-2024 ambulatory Prosper Trimble Facility:[facility] Start: 08-29-2023 End: 08-29-2023 ambulatory [facility] Work Phone: Start: 08-29-2023 End: 08-29-2023 Patient encounter procedure [facility]patient Breast [facility] Work Phone: Start: 08-14-2023 End: 08-14-2023 Patient encounter procedure Nemo Lambert APRN.CNM Work Phone: OB/Gynecology Comment on above: Encounter for gyneco logical examination (general) (routine) without abnormal findings (Primary Dx); Encounter for screening mammogram for breast cancer; Dense breast tissue; Post-menopause; Vaginal dryness, menopausal Start: 08-14-2023 End: 08-14-2023 Patient encounter status Nemo Lambert APRN.CNM Work Phone: [facility] Start: 05-14-2023 End: 05-14-2023 ambulatory [facility] Work Phone: Start: 05-14-2023 End: 05-14-2023 Patient encounter procedure [facility] Work Phone: Start: 03-06-2023 End: 03-06-2023 ambulatory [facility] Work Phone: Start: 03-06-2023 End: 03-06-2023 Patient encounter procedure [facility] Start: 07-11-2022 End: 07-11-2022 ambulatory [facility] Work Phone: Start: 07-11-2022 End: 07-11-2022 Patient encounter procedure [facility]-Outpatient Breast [facility] Start: 06-29-2022 End: 06-29-2022 ambulatory [facility] Work Phone: Start: 06-29-2022 End: 06-29-2022 [facility] Start: 05-23-2022 End: 05-23-2022 ambulatory [facility] Work Phone: Start: 05-23-2022 End: 05-23-2022 Patient encounter procedure [facility] Start: 08-29-2018 End: 08-30-2018 Patient encounter procedure NONE PHYSICIAN Facility:B Encounter for other preprocedural examination [facility] Encounter for preprocedural cardiovascular examination Sammy Mauricio PA-C [facility] Procedures Date Procedure Procedure Detail Performing Clinician Start: 12-09-2024 End: 12-09-2024 Radex hip unilateral with pelvis 2-3 views Sammy Mauricio PA-C Start: 11-12-2024 Urine culture Ellis verdin MD Work Phone: Start: 10-29-2024 End: 10-29-2024 Arthrp acetblr/prox fem prostc agrft/algrft Sammy Mauricio PA-C Start: 10-29-2024 End: 10-29-2024 PA Total Hip Arthoplasty & Prosthesis Sammy Mauricio PA-C Start: 10-29-2024 End: 10-29-2024 Physical therapy re-eval est plan care 20 mins Sammy Mauricio PA-C Start: 10-29-2024 End: 10-29-2024 Therapeut actvity direct pt contact each 15 min Sammy Mauricio PA-C Start: 10-13-2024 End: 10-13-2024 Surgery Prepay Sammy Mauricio PA-C Start: 10-09-2024 End: 10-09-2024 Collection venous blood venipuncture Sammy Mauricio PA-C Start: 10-09-2024 End: 10-09-2024 Ecg routine ecg w/least 12 lds w/i&r Sammy Mauricio PA-C Start: 10-09-2024 End: 10-09-2024 EMN Sammy Mauricio PA-C Start: 10-09-2024 End: 10-09-2024 No Charge Sammy Mauricio PA-C Start: 10-09-2024 End: 10-09-2024 Noninvasive ear/pulse oximetry single deter Sammy Mauricio PA-C Start: 10-09-2024 End: 10-09-2024 Physical therapy evaluation mod complex 30 mins Sammy Mauricio PA-C Start: 10-09-2024 End: 10-09-2024 Therapeut actvity direct pt contact each 15 min Sammy Mauricio PA-C Start: 09-02-2024 Screening mammography C kal Alford MD Work Phone: Start: 06-08-2024 End: 06-08-2024 Radex spine lumbosacral minimum 4 views Chase Alvarado MD Start: 05-13-2024 End: 05-13-2024 Radex hips bilateral with pelvis 3-4 views Santiago Morgan Jr Work Phone: Start: 08-29-2023 Screening mammography Start: 07-11-2022 Screening mammography Plan of Treatment Date Care Activity Detail Author Start: 08-13-2029 Screening for malignant neoplasm of cervix Cervical Cancer Screening [facility] Start: 09-02-2025 Screening for malignant neoplasm of breast Mammogram Screening [facility] Start: 01-25-2025 Influenza vaccination Influenza Vaccine (Season Ended) [facility] Start: 10-29-2024 Venus Rincon - COURTNEY DL (ncxl): Abhinav Esposito Re [facility] Work Phone: Start: 10-09-2024 End: 10-09-2024 [facility] Start: 08-28-2024 Screening for malignant neoplasm of breast Mammogram Screening [facility] Start: 06-01-2024 Venus Rincon [facility] Work Phone: Start: 01-26-2024 Covid-19 Vaccine ( season) Covid-19 Vaccine ( season) [facility] Start: 01-26-2024 Influenza vaccination Influenza Vaccine (#1) [facility] Start: 05-27-2023 Depression Assessment Depression Assessment [facility] Start: 01-25-2023 Covid-19 Vaccine ( season) Covid-19 Vaccine ( season) [facility] Start: 01-25-2023 Influenza vaccination Influenza Vaccine (#1) [facility] Start: 2017 Pneumococcal Vaccine: 50+ (1 of 1 - PCV) Pneumococcal Vaccine: 50+ (1 of 1 - PCV) [facility] Start: 2017 Shingrix Vaccine (1 of 2) Shingrix Vaccine (1 of 2) [facility] Start: 2012 Diabetes Screening Diabetes Screening [facility] Start: 2012 Lipid panel Lipid Screening [facility] Start: 2012 Screening for malignant neoplasm of colon [facility] Start: 2007 Screening for malignant neoplasm of breast Mammogram Screening [facility] Start: 1997 Screening for malignant neoplasm of cervix HPV Testing [facility] Start: 1988 Screening for malignant neoplasm of cervix [facility] Start: 1986 Hepatitis B Vaccine (1 of 3 - 19+ 3-dose series) Hepatitis B Vaccine (1 of 3 - 19+ 3-dose series) [facility] Start: 1986 Urine microalbumin profile DTaP,Tdap,Td Vaccine (1 - Tdap) [facility] Start: 1985 Anxiety Screening Anxiety Screening [facility] Start: 1985 Depression Screening Depression Screening [facility] Start: 1985 Hepatitis C screening Hepatitis C Screening [facility] Start: 1985 HIV screening HIV Screening [facility] PAP TEST PAP TEST Lab [facility] Encounter for gynecological examination (general) (routine) without abnormal findings Screening for cervical cancer Screening for human papillomavirus (HPV) 08/13/2024 4:02 PM EDT [facility] Work Phone: [facility] Immunizations Immunization Date Immunization Notes Care Provider [facility] 09-01-2020 Covid (Pfizer) [facility] 08-11-2020 Covid (Pfizer) [facility] Payers Date Payer Category Payer Self-pay [id number] 2018 Private Health Insurance MMO [employer] PPO [id number] 2018 Unknown MMO MMO SUPER[employer] PPO [id number] 2018-Present [phone] [address] [place] [address] PPO [id number] 2014 Unknown [id number] 1965 Unknown [id number] 2.16.840.1.938420.3.579.2. 627 1967 Unknown [id number] 2.16.840.1.452153.3.579.2. 1313 1967 Unknown [id number] 2.16.840.1.827989.3.579.2. 1313 1967 Unknown [id number] 2.16.840.1.895843.3.579.2. 1313 1967 Unknown [id number] 2.16.840.1.092656.3.579.2. 1313 1967 Unknown [id number] 2.16.840.1.439009.3.579.2. 1313 1967 Unknown [id number] 2.16.840.1.671333.3.579.2. 1313 1967 Unknown [id number] 2.16.840.1.328690.3.579.2. 1313 1967 Unknown [id number] 2.16.840.1.915442.3.579.2. 1313 1967 Unknown [id number] 2.16.840.1.512131.3.579.2. 1313 1967 Unknown [id number] 2.16.840.1.953487.3.579.2. 1313 1967 Unknown [id number] 2.16.840.1.987557.3.579.2. 1313 1967 Unknown [id number] 2.16.840.1.379263.3.579.2. 1314 1967 Unknown [id number] 2.16.840.1.950706.3.579.2. 1313 1967 Unknown [id number] 2.16.840.1.926934.3.579.2. 1313 1967 Unknown [id number] 2.16.840.1.906337.3.579.2. 1313 1967 Unknown [id number] 2.16.840.1.291614.3.579.2. 1313 1967 Unknown [id number] 2.16.840.1.805145.3.579.2. 1313 1967 Unknown [id number] 2.16.840.1.195085.3.579.2. 1313 1967 Unknown [id number] 2.16.840.1.775338.3.579.2. 1314 Unknown [id number] 2.16.840.1.830542.3.579.2. 462 Unknown [id number] 2.16.840.1.726704.3.579.2. 462 Unknown [id number] 2.16.840.1.308837.3.579.2. 462 Unknown [id number] 2.16.840.1.310028.3.579.2. 462 Social History Date Type Detail Facility Tobacco smoking status MEIS Unknown if ever smoked [facility] Work Phone: Start: 1965 Sex Assigned At Female W [facility] Start: 08-14-2023 End: 09-16-2023 Tobacco smoking status MEIS Never smoked tobacco [facility] Start: 08-14-2023 Tobacco use and exposure Smokeless tobacco non-user [facility] Start: 08-14-2023 End: 08-13-2024 Alcohol intake Current drinker of alcohol (finding) [facility] Start: 08-14-2023 End: 08-13-2024 Alcohol intake [facility] Start: 08-14-2023 End: 08-13-2024 Tobacco use panel [facility] National Score (1-100), lower number is lower risk 76 [facility] Start: 08-14-2023 Alcohol Comment couple times a month [facility] Start: 1965 Sex Assigned At Not on file [facility] Start: 05-13-2024 End: 03-09-2025 Tobacco smoking status NHIS Unknown if ever smoked [facility] Start: 05-14-2024 Health-related Behavior Caffeine Use Details [facility] Start: 04-23-2023 Sexual Orientation Choose not to disclose [facility] Start: 09-08-2024 Sex Female (finding) [facility] NEGATED: Highlighted row Alcohol intake Alcohol Use Details [facility] Clinical Notes 06-29-2022 to 03-11-2025 Note Date & Type Note Facility 03-11-2025 Evaluation note Type assessment [facility] Work Phone: 1(417) 691-655110-14-2025 History of Present illness Narrative* Encounter Date Complaint History Of Prese nt Illness AVL Post op (copy) 59 year old britany briceño presents to the office for a follow up. She is post op from a RTHA (DL) by Dr. Morgan on 10/29/2024. She reports no groin pain at today. Today she wants her leg length assessed. She is not using a walker/cane/wheelchair device for ambulation. AVL Post op (copy) 59 year old britany briceño presents to the office for their routine 6 week post-op appointment. She is post op from a RTHA (DL) by Dr. Morgan on 10/29/2024. She is complaining of mild pain and rate the pain a 3/10. She is currently taking Tylenol for pain control. She describes the pain as soreness/aching. She is currently in physical therapy, which she states is going well. He/she is also completing a home exercise program for days they do not have formal physical therapy. She is not using a walker/cane/wheelchair device for ambulation. Preoperative medical risk stratification The patient, Venus Rincon, is a 59-year-old female who presents at the request of Dr.Adolph Cathy Collado MD in anticipation of RTHR. The surgeon has sent this patient to our office for a preoperative evaluation. This has included a discussion with the patient regarding their medical conditions and how they relate to the surgery. The patient has also been provided verbal and written instructions regarding perioperative management of their medications. Additional testing felt to be a necessary part of the PAT process including labs, imaging, or specialist consultation will be detailed below. A CONSULT HAS BEEN REQUESTED BY THE SURGEON FOR EVALUATION AND OPTIMIZATION OF THE FOLLOWING CHRONIC MEDICAL CONDITIONS PRIOR TO SURGERY . . . : GERD ; currently controlled with a proton pump inhibitor Obesity - currently controlled with diet therapy aloneKnown CKD New Spine Patient presents for initial lumbar spine evaluation. She is planning RTHA with Dr. Morgan and recommended evaluation of scoliosis. States from [id number] she wore [place] back brace, has not had checked since she was 19 years old. States hip is most bothersome. c/o mild back pain. Denies any radiating pain, numbness or tingling in legs. She has seen chiropractor in past, She stoppped pilates due to hip symptoms. Back New Patient Right Hip 59 year ol d female presents to the office for right hip evaluation. They presents to the office complaining of intermittent right hip pain. They states the pain has been present for a year and half however, the pain has increased over the last few months and is impeding their ability to perform their activities of daily life and is impacting their quality of life. 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 They complain of the pain waking up at night. They describe the pain as throbbing/achy/burning/tingling, located along the right lateral hip with radiation down the right leg and rate the pain 9/10. They states that bending over/walking long distances/stairs makes the pain worse. The patient also states that Tylenol helps relieve some of the pain. In the past, they have been treated with PT/Cortisone/PRP which provided some relief initially. They have seen a previous Orthopedic surgeon, who referred her to pain management. She has been having some instability, along with catching and clicking at times. Her mobility has become very limited, making her daily ADL's difficult. Her last cortisone injection was January 2024 with mild relief. She currently denies any chest pain, shortness of breath, numbness/tingling or calf tenderness. They have a PMH of IgA Nephrology, Scoliosis (wore a [place] brace from 6 grade through 12th), bunion surgery. They deny taking any GLP-1 and GLP-2 agonist. They are taking the current medications Tylenol, omperazole as needed, 2 calcium pills. [facility] Work Phone: 1(745) 396-633208-29-2025 Discharge summary [facility] [address] [place] [address] / REHABILITATION SERVICES DISCHARGE SUMMARY MR#: [id number] Acct: [id number] Name: VENUS RINCON Rep #: [id number] : 1965 59 From: Abdifatah Morataya PT, ATC Referring Dr.: Dr. Santiago Morgan MD Status: REG RCR Insurance: [facility] [employer] INSURANCE Discharge Summary D/C summary: It has been my pleasure to treat VENUS RINCON referred by Dr. Santiago Morgan MD, with the diagnosis of R KEYON 10/29/24 for a total of 19 visit(s). Discharge Date: Please see the following information for a summary of their discharge status. Subjective Subjective: Pt is ready for HEP Pain R KEYON: Pain Intensity (Out of 10): 2 Overall Improvement % Improvement: 75 Objective Objective/Function: Pt is now I with HEP Goals Goal 1:: Decrease R hip pain x 50% to aid with sleep Goal Progress: Progressing Goal 2:: Increase R hip strength to equal 90% of L hip strength to aid with stair negotiation Goal Progress: Goal Met Goal 3:: Pt will perform the TUG in under 30 seconds to aid with mobility Goal Progress: Goal Met Goal 4:: Pt will perform 10 sit to stand transfers in 30 sec to aid with transfer efficiency Goal Progress: Goal Met Goal 5:: I with HEP Goal Progress: Progressing Plan Plan: Discharge to HEP D/C Information d/c sentence: If there are questions or concerns regarding this patient's physical therapy, please feel free to call me at [phone]. Thank you for the referral of thispatient. Sincerely, Abdifatah Morataya, PT, ATC Balance/Gait/Functional tests Balance/Special Test Scores WOMAC Total Score: 66 WOMAC Percentage: 31.2500 Improvement % Improvement: 75 01/22/25 1437 CC: Dr. Santiago Morgan MD; Dr. Ellis Alford MD ~ [facility] Signed [facility]08-29-2025 Discharge summary Author Abdifatah Morataya [facility] Note Date/Time January 22, 2025 2: 42pm [facility] [address] [place] [id number] / REHABILITATION SERVICES DISCHARGE SUMMARY MR#: [id number] Acct: [id number] Name: VENUS RINCON Rep #: [id number] : 1965 59 From: Abdifatah Morataya PT, ATC Referring Dr.: Dr. Santiago Morgan MD Status: REG RCR Insurance: [facility] [employer]F [employer] INSURANCE Discharge Summary D/C summary: It has been my pleasure to treat VENUS RINCON referred by Dr. Santiago Morgan MD, with the diagnosis of R KEYON 10/29/24 for a total of 19 visit(s). Discharge Date: Please see the following information for a summary of their discharge status. Subjective Subjective: Pt is ready for HEP Pain R KEYON: Pain Intensity (Out of 10): 2 Overall Improvement % Improvement: 75 Objective Objective/Function: Pt is now I with HEP Goals Goal 1:: Decrease R hip pain x 50% to aid with sleep Goal Progress: Progressing Goal 2:: Increase R hip strength to equal 90% of L hip strength to aid with stair negotiation Goal Progress: Goal Met Goal 3:: Pt will perform the TUG in under 30 seconds to aid with mobility Goal Progress: Goal Met Goal 4:: Pt will perform 10 sit to stand transfers in 30 sec to aid with transfer efficiency Goal Progress: Goal Met Goal 5:: I with HEP Goal Progress: Progressing Plan Plan: Discharge to HEP D/C Information d/c sentence: If there are questions or concerns regarding this patient's physical therapy, please feel free to call me at [phone]. Thank you for the referral of thispatient. Sincerely, Abdifatah Morataya, PT, ATC Balance/Gait/Functional tests Balance/Special Test Scores WOMAC Total Score: 66 WOMAC Percentage: 31.2500 Improvement % Improvement: 75 <Electronically signed by Abdifatah Morataya PT, ATC> 01/22/25 1437 CC: Dr. Santiago Morgan MD; Dr. Ellis Alford MD ~ [facility] Signed [facility] Work Phone: 1(211) 959-955403-20-2025 NoteHNO ID: [id number] Author: NEMO LAMBERT APRN.CNM Service: ? Author Type: Human Service Worker Type: Progress Notes Filed: 08/13/2024 16:03 Note Text: Venus is a 59 year old who presents for an annual gynecologic exam without complaints. Postmenopausal: Yes since age 53 HRT use: No. Sexually active: Yes Contraception: None Contraception frequency: N/A HPV vaccine: N/A Last pap smear: 07/06/2022 Normal History of abnormal pap: No Colposcopy: No. Leep: No. Cone biopsy: No. 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 History Comments: Sexual Activity: Yes; Male Contraception: None FAMILY HISTORY Problem Relation Age of Onset Diabetes Mother Hypertension Mother Uterine Cancer Mother Scoliosis Father No Known Problems Sister No Known Problems Maternal Grandmother No Known Problems Maternal Grandfather No Known Problems Paternal Grandmother No Known Problems Paternal Grandfather SOCIAL HISTORY Social History Tobacco Use Smoking status: Never Smokeless tobacco: Never Substance Use Topics Alcohol use: Yes Alcohol/week: 2.0 standard drinks of alcohol Types: 2 Cans of beer per week Comment: couple times a month Drug use: Never REVIEW OF SYSTEMS Abdomen: No abdominal pain, nausea, vomiting, diarrhea, or constipation. No bloating, early satiety, indigestion, or increased flatulence. Bladder: No dysuria, gross hematuria, urinary frequency, urinary urgency, or incontinence Breast: No breast lumps, nipple d/c, overlying skin changes, redness or skin retraction Allergies and current medication updated:Yes SENSITIVE EXAM: The sensitive examination was discussed with the Patient or Patient's Authorized Consultant Rn. As applicable, any other physician, advance practice provider, medical student, or other health professional student that will be observing or involved in the sensitive examination for educational or training purposes was discussed with the Patient or Authorized Consultant Rn. The Patient or Authorized Consultant Rn has agreed to proceed with the sensitive examination. (Sensitive examination includes inspection and/or palpation of the breasts, pelvis, prostate and anorectal regions). EXAM: BP 120/72 Ht 5' 5 (1.65m) Wt 176 lb (79.8kg) BMI 29.29 kg/(m2). GENERAL: pleasant, female in no apparent distress HEENT: Normocephalic, atraumatic, mucus membranes moist, and no lesions NECK: Supple and full range of motion DERMATOLOGY: Normal and without lesions BREAST: soft, non-tender, symmetric, no dominant mass, normal nipple-areolar complex, no lymphadenopathy, no nipple discharge, and fibrocystic changes CHEST: Normal inspiratory effort ABDOMEN: soft, non-tender, and no masses PELVIC: external genitalia normal, normal Bartholin's glands, urethra, Hemingway's glands, no vulvar lesions, no cervical lesions, good vaginal support, physiologic discharge present, normal appearing perineal body and perianal region, stenotic os BIMANUAL: uterus normal size, shape and consistency, no adnexal masses, non-tender, and no cervical motion tenderness RECTOVAGINAL: deferred. NEURO: alert and oriented x3,exam grossly non-focal EXTREMITIES: normal ASSESSMENT/PLAN: 1) Health maintenance: Pap done with HPV- Per patient's request due to family hx of uterine/cervical cancer- Patient informed that cervical os is stenotic and sample may be insufficient Mammogram ordered - Patient completes mammograms at [facility] Colon cancer screening: patient to discuss with PCP TSH/lipids/glucose: followed by PCP Vitamin D: followed by PCP 2) Follow up one year or sooner as needed Nemo Lambert APRN.[facility]03-20-2025 History of Present illness Narrative* Nemo Lambert APRN.[facility] - 08/13/2024 2:46 PM EDT Venus is a 59 year old who presents for an annual gynecologic exam without complaints. Postmenopausal: Yes since age 53 HRT use: No. Sexually active: Yes Contraception: None Contraception frequency: N/A HPV vaccine: N/A Last pap smear: 07/06/2022 Normal History of abnormal pap: No Colposcopy: No. Leep: No. Cone biopsy: No. 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 History Comments: Sexual Activity: Yes; Male Contraception: None FAMILY HISTORY Problem Relation Age of Onset Diabetes Mother Hypertension Mother Uterine Cancer Mother Scoliosis Father No Known Problems Sister No Known Problems Maternal Grandmother No Known Problems Maternal Grandfather No Known Problems Paternal Grandmother No Known Problems Paternal Grandfather SOCIAL HISTORY Social History Tobacco Use Smoking status: Never Smokeless tobacco: Never Substance Use Topics Alcohol use: Yes Alcohol/week: 2.0 standard drinks of alcohol Types: 2 Cans of beer per week Comment: couple times a month Drug use: Never REVIEW OF SYSTEMS Abdomen: No abdominal pain, nausea, vomiting, diarrhea, or constipation. No bloating, early satiety, indigestion, or increased flatulence. Bladder: No dysuria, gross hematuria, urinary frequency, urinary urgency, or incontinence Breast: No breast lumps, nipple d/c, overlying skin changes, redness or skin retraction Allergies and current medication updated:Yes SENSITIVE EXAM: The sensitive examination was discussed with the Patient or Patient's Authorized Consultant Rn. As applicable, any other physician, advance practice provider, medical student, or other health professional student that will be observing or involved in the sensitive examination for educational or training purposes was discussed with the Patient or Authorized Consultant Rn. The Patient or Authorized Consultant Rn has agreed to proceed with the sensitive examination. (Sensitive examination includes inspection and/or palpation of the breasts, pelvis, prostate and anorectal regions). EXAM: BP 120/72 Ht 5' 5 (1.65m) Wt 176 lb (79.8kg) BMI 29.29 kg/(m^2). GENERAL: pleasant, female in no apparent distress HEENT: Normocephalic, atraumatic, mucus membranes moist, and no lesions NECK: Supple and full range of motion DERMATOLOGY: Normal and without lesions BREAST: soft, non-tender, symmetric, no dominant mass, normal nipple-areolar complex, no lymphadenopathy, no nipple discharge, and fibrocystic changes CHEST: Normal inspiratory effort ABDOMEN: soft, non-tender, and no masses PELVIC: external genitalia normal, normal Bartholin's glands, urethra, Hemingway's glands, no vulvar lesions, no cervical lesions, good vaginal support, physiologic discharge present, normal appearing perineal body and perianal region, stenotic os BIMANUAL: uterus normal size, shape and consistency, no adnexal masses, non- tender, and no cervicalmotion tenderness RECTOVAGINAL: deferred. NEURO: alert and oriented x3,exam grossly non-focal EXTREMITIES: normal ASSESSMENT/PLAN: 1) Health maintenance: Pap done with HPV- Per patient's request due to family hx of uterine/cervical cancer- Patient informed that cervical os is stenotic and sample may be insufficient Mammogram ordered - Patient completes mammograms at [facility] Colon cancer screening: patient to discuss with PCP TSH/lipids/glucose: followed by PCP Vitamin D: followed by PCP 2) Follow up one year or sooner as needed Nemo Lambert APRN.CNM [facility] note* Type Assessment Date assessment [facility] Work Phone: 1(653) 794-899801-13-2025 History of Present illness Narrative* Encounter Date Complaint History Of Prese nt Illness New Spine Patient presents for initial lumbar spine evaluation. She is planning RTHA with Dr. Morgan and recommended evaluation of scoliosis. States from [id number] she wore [place] back brace, has not had checked since she was 19 years old. States hip is most bothersome. c/o mild back pain. Denies any radiating pain, numbness or tingling in legs. She has seen chiropractor in past, She stoppped pilates due to hip symptoms. Back New Patient Right Hip 59 year ol d female presents to the office for right hip evaluation. They presents to the office complaining of intermittent right hip pain. They states the pain has been present for a year and half however, the pain has increased over the last few months and is impeding their ability to perform their activities of daily life and is impacting their quality of life. 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 They complain of the pain waking up at night. They describe the pain as throbbing/achy/burning/tingling, located along the right lateral hip with radiation down the right leg and rate the pain 9/10. They states that bending over/walking long distances/stairs makes the pain worse. The patient also states that Tylenol helps relieve some of the pain. In the past, they have been treated with PT/Cortisone/PRP which provided some relief initially. They have seen a previous Orthopedic surgeon, who referred her to pain management. She has been having some instability, along with catching and clicking at times. Her mobility has become very limited, making her daily ADL's difficult. Her last cortisone injection was January 2024 with mild relief. She currently denies any chest pain, shortness of breath, numbness/tingling or calf tenderness. They have a PMH of IgA Nephrology, Scoliosis (wore a [place] brace from 6 grade through 12th), bunion surgery. They deny taking any GLP-1 and GLP-2 agonist. They are taking the current medications Tylenol, omperazole as needed, 2 calcium pills. [facility] Work Phone: [phone]) 453-452912-19-2024 Evaluation note* Type Assessment Date assessment assessment assessment assessment [facility] Work Phone: [phone]) 266-919212-18-2024 History of Present illness Narrative* Encounter Date Complaint History Of Yevgeniy bhat Illness New Patient Right Hip 59 year ol d female presents to the office for right hip evaluation. They presents to the office complaining of intermittent right hip pain. They states the pain has been present for a year and half however, the pain has increased over the last few months and is impeding their ability to perform their activities of daily life and is impacting their quality of life. 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 They complain of the pain waking up at night. They describe the pain as throbbing/achy/burning/tingling, located along the right lateral hip with radiation down the right leg and rate the pain 9/10. They states that bending over/walking long distances/stairs makes the pain worse. The patient also states that Tylenol helps relieve some of the pain. In the past, they have been treated with PT/Cortisone/PRP which provided some relief initially. They have seen a previous Orthopedic surgeon, who referred her to pain management. She has been having some instability, along with catching and clicking at times. Her mobility has become very limited, making her daily ADL's difficult. Her last cortisone injection was January 2024 with mild relief. She currently denies any chest pain, shortness of breath, numbness/tingling or calf tenderness. They have a PMH of IgA Nephrology, Scoliosis (wore a [place] brace from 6 grade through 12th), bunion surgery. They deny taking any GLP-1 and GLP-2 agonist. They are taking the current medications Tylenol, omperazole as needed, 2 calcium pills. [facility] Work Phone: 1(164) 290-626303-20-2024 Instructions* Patient Instructions* Nemo Lambert APRN.POORNIMA - 08/14/2023 2:07 PM EDT Non-Hormonal Vaginal Lubricants & Vaginal Moisturizers Symptoms of vaginal dryness can be managed by the regular use of vaginal moisturizing agents with supplemental use of vaginal lubricants for sexual intercourse. . Use of vaginal moisturizers and lubricants alone is effective treatment for vaginal dryness or dyspareunia (pain with intercourse) in some patients. Vaginal lubrications- Vaginal lubricants are designed to reduce friction and discomfort from dryness during sexual intercourse. The lubricant is applied inside the vagina and/or on the partner's penis or fingers just before sex. Coconut, Sylvester, Avocado or Peanut oil- natural oils are not recommended for use with latex condoms or diaphragms as they can damage the latex Astroglide- has both water and silicone based KY Jelly- water based Just like me - Pure Romance Almost Naked Good Clean Love - Bio Nude ultra-sensitive Pjur- silicone ID Millennium- silicone Vaginal Moisturizers- Vaginal moisturizers are intended for use routinely, typically two or three days per week, not just during sexual activity. These products are typically bioadhesives. Many moisturizer products are available in pharmacies and online. Restore- Mtivity.Factory Logic Replens Christian Feminease Moist Again K-Y Liquid beads Products to assist with maintaining vaginal ph IsoFresh www.Identia BiopHresh Rephresh [facility] History of Present illness Narrative* Nemo Lambert APRN.CNM - 08/14/2023 1:47 PM EDT Circuit Breaker Supervisor offered: Patient declines. Venus is a 58 year old No obstetric history on file. who presents for an annual gynecologic exam without complaints. She is new to practice. Postmenopausal: Yes since age 53 HRT use: No. Last Pap: normal HPV: negative History of abnormal pap: No Last mammogram: 2022 normal History of abnormal mammogram: Yes called back for views/ biopsy- NEG Sexually active: Yes History of obstetrics gyn physician malignancy: None Pain with intercourse: No Postcoital bleeding: No Hot flashes: No Night sweats: No Vaginal dryness: Yes- uses coconut oil OB History No obstetric history on file. Cement Tile Maker History LMP: Postmenopausal Age at Menarche: Age at First : Age at Menopause: Cement Tile Maker History Comments: Sexual Activity: Yes; Male Contraception: No contraception data on record PAST MEDICAL HISTORY Diagnosis Date History of primary IgA nephropathy 05/27/1992 IGA Nephropathy Scoliosis PAST SURGICAL HISTORY Procedure Laterality Date BUNIONECTOMY, LAPIDUS-TYPE Bilateral PAST SURGICAL HISTORY OF Right 1968 hip surgery FAMILY HISTORY Problem Relation Age of Onset Diabetes Mother Hypertension Mother Uterine Cancer Mother Scoliosis Father No Known Problems Sister No Known Problems Maternal Grandmother No Known Problems Maternal Grandfather No Known Problems Paternal Grandmother No Known Problems Paternal Grandfather SOCIAL HISTORY Social History Tobacco Use Smoking status: Never Smokeless tobacco: Never Substance Use Topics Alcohol use: Yes Alcohol/week: 2.0 standard drinks of alcohol Types: 2 Cans of beer per week Comment: couple times a month Drug use: Never REVIEW OF SYSTEMS Abdomen: No abdominal pain, nausea, vomiting, diarrhea, or constipation. No bloating, early satiety, indigestion, or increased flatulence. Bladder: No dysuria, gross hematuria, urinary frequency, urinary urgency, or incontinence Breast: No breast lumps, nipple d/c, overlying skin changes, redness or skin retraction Allergies and current medication updated:Yes EXAM: BP 100/70 Ht 5' 4.25 (1.63m) Wt 175 lb 6.4 oz (79.6kg) BMI 29.87 kg/(m^2). GENERAL: pleasant, female in no apparent distress HEENT: Normocephalic and atraumatic NECK: Supple and full range of motion DERMATOLOGY: Normal and without lesions BREAST: soft, non-tender, symmetric, no dominant mass, normal nipple-areolar complex, no lymphadenopathy, and no nipple discharge CHEST: Normal inspiratory effort ABDOMEN: soft, non-tender, and no masses PELVIC: external genitalia normal, normal Bartholin's glands, urethra, Hemingway's glands, no vulvar lesions, no cervical lesions, good vaginal support, physiologic discharge present, normal appearing perineal body and perianal region BIMANUAL: uterus normal size, shape and consistency, no adnexal masses, non- tender, and no cervicalmotion tenderness RECTOVAGINAL: deferred. NEURO: alert and oriented x3,exam grossly non-focal EXTREMITIES: normal ASSESSMENT/PLAN: 1) Health maintenance: Pap/HPV up to date. Mammogram ordered - gets done at [facility] Calcium/Vitamin D supplementation information provided. Vaginal lubricants/ moisturizer hand out provided 2) Follow up one year or sooner as needed Nemo Lambert APRN.CNM documented in this encounterF[facility] Hospital02-[facility]-2023 NotePap Smear Specimen AdequacyFebruary 2022 3:21pmComment.Satisfactory for evaluation. Endocervical component may not bedistinguished in cases of atrophy.[facility] INTERFACED A#[id number] Van Wert HospitalComsparrow ionia hospital on above:Satisfactory for evaluation. Endocervical component may not bedistinguished in cases of atrophy. 06-29-2022 NotePap Smear QC ReviewFebruary 2022 3:21pmComment.Lyric Sun, Supervisory Tile Fitter (ASCP)[facility] INTERFACED A#[id number] Van Wert HospitalComment on above:Lyric Sun, Supervisory Tile Fitter (ASCP)06-29-2022 NotePap Smear Specimen AdequacyFebruary 2022 3:21pmComment .Satisfactory for evaluation. Endocervical component may not bedistinguished in cases of atrophy.[facility] INTERFACED A#[id number] Van Wert HospitalComment on above:Satisfactory for evaluation. Endocervical component may not bedistinguished in cases of atrophy.06-29-2022 NotePap Smear QC ReviewFebruary 2022 3:21pmComment.Lyric Sun, Supervisory Tile Fitter (ASCP)[facility] INTERFACED A#[id number] Van Wert HospitalComsparrow ionia hospital on above:Lyric Sun, Supervisory Tile Fitter (ASCP)Consult note* Clinical Note Date No Information [facility] Work Phone: Discharge summary* Clinical Note Date No Information [facility] Work Phone: Evaluation noteNo assessment information available [facility] Work Phone: Evaluation note* Diagnosis Encounter for gynecological examination (general) (routine) without abnormal findings- Primary Encounter for screening mammogram for breast cancer Dense breast tissue Post-menopause Asymptomatic postmenopausal status (age-related) (natural) Vaginal dryness, menopausal Symptomatic menopausal or female climacteric states [facility] Encounter for gynecological examination (general) (routine) without abnormal findings- Primary Encounter for screening mammogram for breast cancer Dense breast tissue Screening for cervical cancer Screening for malignant neoplasm of the cervix Screening for human papillomavirus (HPV) Special screening examination for human papillomavirus (HPV) documented in this encounter [facility] Hospital[facility] and [facility]* Clinical Note Date No Information [facility] Work Phone: Instructions* Date Instruction Additional Infor mation No Information [facility] Work Phone: Progress note* Clinical Note Date No Information [facility] Work Phone: Reason for referral (narrative)* Reason For Referral No Information [facility] Work Phone: Rexpuw for referral (narrative)No reason for referral information availableOhiohealth Van Wert Hospital Work Phone: Summary Purpose Family History No Family History Records Found Family Member Type Diagnosis Age At Onset No Information Relationship Condition Age at Onset Recorded Date/T damien Not Specified Diabetes mellitus Unknown mother Malignant neoplasm Unknown father High blood cholesterol Unknown aunt Malignant neoplasm Unknown Family Member Type Diagnosis Age At Onset Maternal Grandfather Problem (finding) Family history of Heart disease Mother Problem (finding) Diabetes mellitus Mother Problem (finding) Family history of Strok e Mother Problem (finding) Cancer Mother Problem (finding) Family history of Blood clots Mother Problem (finding) Hypertension Advance Directives No Advanced Directives Records Found Directive Yes / No Effective Date File Name No Information Chief Complaint and Reason for Visit Chief Complaint SCREENING Chief Complaint SCREENING Chief Complaint Admit Date SCREENING September 02, 2024 2:23 pm Chief Complaint Admit Date RIGHT HIP REPLACEMENT. RX HERE January 222024 1:30pm Additional Source Comments INFORMATION SOURCE (unrecogn ized section and content) DATE CREATED AUTHOR 10/11/2018 [facility] ([place]) DATE CREATED AUTHOR AUTHOR'S ORGANIZ ATION 08/25/2024 [facility] DATE CREATED AUTHOR AUTHOR'S ORGANIZ ATION 10/10/2024 [facility] DATE CREATED AUTHOR AUTHOR'S ORGANIZ ATION 10/10/2024 [facility] DATE CREATED AUTHOR AUTHOR'S ORGANIZ ATION 10/30/2024 [facility] DATE CREATED AUTHOR AUTHOR[facility]S [facility]GANIZ ATION [facility] DATE CREATED AUTHOR AUTHOR'S ORGANIZ ATION 04/05/2025 [facility] Goals (unrecognized section and content) Health Concern Goal Type Priority Status No Information Care Teams (unrecognized sec tion and content) Team Status: Active Member Role Status Dates No Primary Care Physician Family Provider Active Shiela Santos , DO Primary Care Provider Active Team Status: Inactive Member Role Status Dates Shiela Santos , DO Primary Care Provider Active Dr. Souleymane Padilla MD Attending Provider, Referri ng Provider Active Team Status: Inactive Member Role Status Dates Shiela Santos , Primary Care Provider Active Dr. Jacquelin Torres , DO Attending Provider Active Team Status: Inactive Member Role Status Dates Shiela Santos DO Primary Care Provider Active Dr. Jacquelin Torres , DO Attending Provider, Referrin g Provider Active Team Status: Inactive Member Role Status Dates Shiela Santos , Primary Care Provider, Attending Provider Active Team Status: Inactive Member Role Status Dates Shiela Santos DO Primary Care Provider Active Dr. Shelia Tolentino DO Attending Provider, Referri ng Provider Active Team Status: Inactive Member Role Status Dates Shiela Santos , Primary Care Provider Active Nemo Lambert CNM Attending Provider, Referring Pr ovider Active Name Effective Dates (start - stop) Status Members No Information Team Status: Active Member Role Status Dates Ellis Alford MD Primary Care Provider Active Team Status: Inactive Member Role Status Dates Ellis Alford MD Primary Care Provider Active St art: May 21, 2024 End: May 21, 2024 Dr. Souleymane Padilla MD Attending Provider Active Start: May 21, 2024 End: May 21, 2024 Dr. Souleymane Padilla MD Referring Provider Active Start: May 21, 2024 End: May 21, 2024 Team Status: Inactive Member Role Status Dates Ellis Alford MD Primary Care Provider Active St art: September 02, 2024 End: September 02, 2024 Nemo Lambert CNM Attending Provider Active Start: September 02, 2024 End: September 02, 2024 Nemo Lambert CNM Referring Provider Active Start: September 02, 2024 End: September 02, 2024 Team Status: Active Member Role/Relationship Status Dates Ellis Alford MD Primary Care Provider Active Team Status: Inactive Member Role/Relationship Status Dates Ellis Alford MD Primary Care Provider Active St art: January 22, 2025 End: January 22, 2025 Dr. Santiago Morgan MD Attending Provider Active Start: January 22, 2025 End: January 22, 2025 Dr. Santiago Morgan MD Referring Provider Active Start: January 22, 2025 End: January 22, 2025 Source Comments (unrecognize d section and content) In the event this informatio n is protected by the Federal Confidentiality of Alcohol and Drug Abuse Patient Records regulations: The Federal rules restrict any use of the information to criminally investigate or prosecute any alcohol or drug abuse patient.F[facility] HospitalIn the event this information is protected by the Federal Confidentiality of Alcohol and Drug Abuse Patient Records regulations: The Federal rules restrict any use of the information to criminally investigate or prosecute any alcohol or drug abuse patient.Flower HospitalIn the event this information is protected by the Federal Confidentiality of Alcohol and Drug Abuse Patient Records regulations: The Federal rules restrict any use of the information to criminally investigate or prosecute any alcohol or drug abuse patient.[facility] Reason for Visit (unrecogniz ed section and content) Reason Comments [facility] FOR RECORDS PERTAINING TO PATIENTS WHO ARE OR HAVE BEEN ENROLLED IN A CHEMICAL DEPENDENCY/SUBSTANCEABUSE PROGRAM, SOME INFORMATION MAY BE OMITTED. This clinical summary was aggregated from multiple sources. Caution should be exercised in using it in the provision of clinical care. This summary normalizes information from multiple sources, and as a consequence, information in this document may materially change the coding, format and clinical context of patient data. In addition, data may be omitted in some cases. CLINICAL DECISIONS SHOULD BE BASED ON THE PRIMARY CLINICAL RECORDS. [facility]. provides no warranty or guarantee of the accuracy or completeness of information in this document.
[2025-05-24 10:45] LABS: Color, Urine Straw (Yellow); Glucose, Dipstick Normal (Normal); Ketone-Dipstick Negative (Negative); Leukocyte Esterase-Dipstick Negative /ul (Negative); Nitrite-Dipstick Negative (Negative); Occult Blood-Urine 150 /ul (Negative); Protein-Dipstick Negative (Negative); Specific Gravity, Urine 1.010 (1.002-1.030); Urine Bilirubin Dipstick Negative (Negative)
[2025-05-24 10:53] LABS: Albumin, Serum 4.0 g/dL (3.5-5.0); Anion Gap 9 (7-18); BUN 19 mg/dL (4-19); BUN/Creat Ratio 19.8 RATIO (10-20); Calcium,Total 9.6 mg/dL (7.6-11.0); Carbon Dioxide 27.7 mmol/L (20.0-29.0); Chloride 102 mmol/L (96-106); Glucose 96 mg/dL (70-99); Potassium 4.7 mmol/L (3.5-5.1)
[2025-05-24 10:59] LABS: Creatinine, Urine (random) 29.90 mg/dL (28.00-217.00); Protein, Urine (Random) < 6.0 mg/dL (0.0-12.0); Protein:Creat Ratio UNABLE TO CALCULATE mg/g CRE (0-200)
== END | disposition home or self-care (01) ==
LOC: MTLAB 07:57
PROVIDERS: PCP Family Medicine; Referring Provider Internal Medicine Nephrology; Visit Provider Internal Medicine Nephrology
DX: N18.31 Chronic kidney disease, stage 3a (principal); N02.8 Recurrent and persistent hematuria with other morphologic changes
CPT/HCPCS: 36415; 80069; 81002; 82570; 84156